=== PATIENT | female | born 1980 | race Caucasian/White ===

== ENCOUNTER 2016-03-25 12:23 | Inpatient (IN) | payer MEDICARE, MEDICAID ==
[~2016-03-25] VITALS: Ht 160 cm; Wt 68.2 kg
[~2016-03-25 12:23] MED LIST: BUSP10TA2 PO; CHOL200025 PO; ESCI10TA52 PO; HYDR50CA3 PO; ZLP5T PO
[2016-03-25 12:26] VITALS: BP 116/72; PULSE 72; RESP 16; O2SAT 100
--- NOTE | 2016-03-25 13:42 | ED.REPORT ---
HPI-Psychiatric Illness Date of Service Mar 25, 2016 ED Provider: Marcos Cabello MD The patient is a 35 year old female with a history of depression, previous suicide attempts, and PTSD who presents to the ED complaining of suicidal ideations. She states that she would overdose on heroin. She has not used for a few months. She was last psychiatrically hospitalized from 02/17/16-02/26- for similar symptoms. She was staying at [facility] for about 1.5 weeks and was released today. She is currently living at the [facility]. She feels safe where she is living. She has been sleeping okay recently. She has noticed decreased appetite. She has experienced some generalized muscle cramps but denies other physical symptoms. She is not sexually active. Nursing Notes Stated Complaint: SUICIDAL THOUGHTS Chief Complaint: Psychiatric Complaint Nursing Notes Reviewed: Yes Allergies: Coded Allergies: ibuprofen (Verified Allergy, Severe, Itchy hands and face. naproxen ok, 02/07/16) lamotrigine (Verified Allergy, Severe, Rash,Itching,, 02/07/16) latex (Verified Allergy, Severe, Rash,Itching,, 02/07/16) quetiapine (Verified Allergy, Severe, Rash,Itching,SOB, 02/07/16) trazodone (Verified Allergy, Severe, 02/07/16) Adhesives (Verified Allergy, Mild, Rash,Itching,, 02/07/16) bupropion (Verified Allergy, Unknown, SEIZURES, 02/07/16) chlorpromazine (Verified Allergy, Unknown, Seizure, 02/07/16) olanzapine (Verified Allergy, Unknown, 02/07/16) haloperidol (Verified Adverse Reaction, Mild, somnolence, 02/07/16) Uncoded Allergies: TREE NUTS (Allergy, Intermediate, 02/26/13) METALS (Allergy, Unknown, 09/18/13) Scheduled Buspirone (Buspirone) 10 Mg Tablet 10 MG PO BID Cholecalciferol (Vitamin D3) (Vitamin D3) 2,000 Unit Tablet 2,000 UNIT PO MORNING Escitalopram Oxalate (Escitalopram Oxalate) 10 Mg Tablet 10 MG PO DAILY Scheduled PRN Hydroxyzine Pamoate (HydrOXYzine Pamoate) 50 Mg Capsule 50 MG PO BID PRN PRN For Anxiety/Agitation/Insomnia Zolpidem (Ambien) 5 Mg Tablet 5 MG PO HS PRN PRN Insomnia General Time Seen by MD: 13:37 Chief Complaint Depressed, Suicidal ideation Hx Obtained From: Patient Arrived By: Walk-in Onset Occurred: 3 days ago Symptom Duration: Since onset Progression Since Onset: Constant, Gradually worsening Quality: Cramping (generalized) Severity: Current: Mild Severity: Maximum: Mild Recent Healthcare: No recent hospitalization, Recent doctor visit Similar Sx Previous: Yes Risk-Psychiatric Illness Suicide Risk Stratification Suicide Risk Factors - Adult: : Prior psych admissionNo: Substance abuse (not currently) RF Statements: Risk factors reviewed Past Medical History Past Medical History Multiple hospitalizations for mental health. Anorexia Bulemia Depression Anxiety Bipolar Disorder PTSD Self mutilation (cutting) Hiatal hernia Reports: Asthma, Hypertension Reports: Migraines Past Surgical History Dental Reports: Family History Unobtainable Smoking History Current Every Day Smoker Social History Alcohol Use: Denies alcohol use Drug Use: In recovery, Meth, THC, Other Other Social History: Poor social support, Homeless Ambulatory Status Independent Review of Systems Review of Systems Note: +muscle cramps Constitutional: Denies: Chills, Fever Respiratory: Denies: Non-productive cough Cardiovascular: Denies: Chest pain GI: Denies: Diarrhea, Nausea, Vomiting Psychiatric: Reports: Depression, Suicidal ideation Complete sys rev & neg: except as marked. Physical Exam Initial Vital Signs Vital Signs (First) Date Time Temp Pulse Resp B/P Pulse Ox O2 Delivery O2 Flow Rate FiO2 03/25/16 12:26 36.8 72 16 116/72 100 Room Air Initial VS: Reviewed Head / Eyes: Atraumatic, Normocephalic, PERRL ENT: Mucous membranes moist, Conjunctiva normal, No scleral icterus Neck: Supple, Non-tender, Full range of motion Respiratory: Breath sounds normal, Clear to auscultation, No respiratory distress Cardiovascular: Regular rate & rhythm, Heart sounds normal, Intact distal pulses Lymphatic: No lymphadenopathy Extremities: Vascular intact, Neuro intact, No swelling, No tenderness Skin: Warm, Dry, No cyanosis General/Constitutional: Awake, Alert, Well appearing Neurologic: Oriented X3, Speech NL, No motor deficits, No sensory deficits, Memory NL Abnormal Thinking / Perception: Positive: Suicidal, with plan (states would overdose with heroin) Pleasant, range of affect Abdomen: Soft, No guarding, No rebound, BS normoactive, No distention, No hernia, No palpable mass, No pulsatile mass Tenderness/Guarding/Rebound: Positive: Tender LLQ... Interpretation & Diagnostics Interpretation & Diagnostics: Urine : negative Urine drug screen: negative Lab Results Interpretation Test 03/25/16 12:36 Hold Urine Received (Received) Re-Eval/Medical Decision Source of Hx: Old records Consultation #1: Consulted With: coke worker Call Returned at: 13:53 Note: Spoke with the ED social work lecturer who will evaluate the patient. Consultation #2: Consulted With: coke worker Call Returned at: 16:16 Note: There are no available voluntary beds at this time. [facility] the patient is she contracts to safety. Counseled Regarding: Diagnosis, Lab results Discharge & Departure Shift Change Sign-Out Patient Care Transferred: Yes Discussed Complaint(s): Yes Laboratory Evaluation: Lab evaluation discussed Response to Therapy: Improved, Discussed Impression: Primary Impression: Suicidal ideation Disposition: Home Discharge Condition All VS Reviewed: Yes Condition: Stable Additional Instructions: Thank you for entrusting us with your care today. [facility] Please return to the emergency department for any new or concerning symptoms. Referrals: Chacha Tran (PCP) Care Transferred to: Dr. Lanza Care Transferred at: 17:02 Ubaldo Attestation Portions of this note were transcribed by Kori Andrea. I, Dr. Cabello personally performed the history, physical exam and medical decision-making; I reviewed and confirmed the accuracy of the information in the transcribed note. Signed by:Ubaldo Faustin, 03/25/2016and 1645. copies to: Chacha Tran Kirk H MD Mar 25, 2016 13:42 Kori Andrea Mar 25, 2016 13:54
[2016-03-25] MEDS ORDERED: LORazepam 1 mg Tablet PO ONE (13:55)
[2016-03-25 16:51] LABS: APPEARANCE,URINE CLEAR (CLEAR,HAZY); COLOR,URINE STRAW (YELLOW); OCCULT BLOOD,URINE NEGATIVE (NEGATIVE); PH,URINE 5.5 (5.0-8.0); UROBILINOGEN,URINE NORMAL (NORMAL)
[2016-03-25 19:18] VITALS: BP 109/71; PULSE 85; RESP 16; O2SAT 99
[2016-03-26 07:00] VITALS: BP 95/57; PULSE 69; RESP 16; O2SAT 96
[2016-03-26 12:04] LABS: BASOPHILS % (AUTO) 0.3 % (0-3); EOSINOPHILS % (AUTO) 2.8 % (0-5); Mean Corpuscular Volume 91.6 fL (81-100); NEUTROPHILS % (AUTO) 57.5 % (40-74); Platelet Count 191 bil/L (150-400)
[2016-03-26 13:45] VITALS: BP 107/62; PULSE 64; RESP 16; O2SAT 97
[2016-03-26] MEDS ORDERED: Benzocaine-Menthol Lozenge 2/Pkg PO PRN (14:55)
[2016-03-26] MEDS ORDERED: Alum-Mag Hydrox-Simeth 30 mL Suspension PO PRN (14:55)
[2016-03-26] MEDS: BusPIRone 15 mg Dividose Tablet PO SCH (20:30)
[2016-03-26 20:49] VITALS: BP 117/69; PULSE 69; RESP 18; O2SAT 100
[2016-03-27 01:17] VITALS: BP 100/63; PULSE 66; RESP 16; O2SAT 97
[2016-03-27] MEDS: BusPIRone 15 mg Dividose Tablet PO SCH ×3 (09:59→20:19)
[2016-03-27] MEDS: hydrOXYzine Pamoate 25 mg Capsule PO PRN (10:32)
--- NOTE | 2016-03-27 14:42 | NUR ---
Nursing Note Admission S/O: Pt arrived on unit at 1425. Pt states she is having constant suicidal thoughts. She rates her depression at a "8 or 9" on a scale of 1-10/10 the worst. Pt rates her anxiety at a "7." Pt reports she does have a suicide plan, but d/n want to talk about it. She agrees to be safe on the unit. Pt reports milk makes her stomach upset, but is able to eat/drink other milk products. Pt denies alcohol use in the past 7 months. She is attempting to stop smoking, but smokes 1 pack a day. Pt reports her medications have not been changed since her last admission. A: Pt depressed & needs evaluation P: Provide supportive environment. Monitor medications & effects.
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
--- NOTE | 2016-03-27 19:30 | NUR ---
Obs Dayshift Pt arrived this afternoon, pt appeared depressed. Requesting to take a shower as soon as possible, after she came out and watched TV w/ peers for the evening. Kept herself out of her room. Participated well w/ admit paperwork. Good ADL's, Good meals
--- NOTE | 2016-03-28 05:25 | NUR ---
Pt out much of evening watching TV and walking with peer. Asleep at 130. Pt observed every 15 minutes as ordered.
--- NOTE | 2016-03-28 05:27 | NUR ---
nursing, nights, 11-7 s- can i have something to help me sleep ? thank you . o- asked for and received 5 mg of ambien at 2335 and 0055. has appeared to sleep after 0130 during q 15 minute assessments. a- difficulty falling asleep, medication helpful, no apparent distress. p- monitor behavior/emotional state, quality, times and amount of sleep, use and effect of medication. lizbeth
[2016-03-28] MEDS: BusPIRone 15 mg Dividose Tablet PO SCH ×3 (09:31→21:07)
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
--- NOTE | 2016-03-28 14:05 | NUR ---
Nursing Note [id number] Behavior, Medication S/O: Pt ate 100% of breakfast but declined lunch. Out of room for groups & meals. Tends to isolate in room. She states, "It's difficult to be out of my room because ----- (other pt) won't leave me alone." She was also startled with remodeling/banging noises from upstairs. Pt rated depression at a "9" on a scale of 1-10/10 the worst. Lexapro dose has been increased. Vistaril 50 mg given at 1032 with some benefit. Encouraged pt to get out of room more. She is currently attending educational group. Pt reports "continual" suicidal ideation. A: Pt con't to have suicidal thoughts & needs support. P: Provide supportive environment. Monitor medications & effects.
--- NOTE | 2016-03-28 16:45 | NUR ---
Observations 0700 to 1900 Pt affect and mood was friendly, social and content. Pt was a little isolative today, stating that she didn't want to be around some of the other patients. Pt speech and eye contact was good. Pt attended group and unit activities. Pt was social with staff and select peers when approached. Pt attended meals in [facility] and ate about 75%. Pt maintained behavior throughout the shift. Pt was polite, pleasant and cooperative. Pt was observed every 15 minutes throughout the shift as ordered. Pt is currently watching TV.
[2016-03-28 18:29] VITALS: BP 116/65; PULSE 75; RESP 16
--- NOTE | 2016-03-28 18:54 | NUR ---
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 She denies S/I and H/I. She also denies auditory and visual hallucinations. She did not rate depression and anxiety. A: Patient is cooperative, sad, depressed, isolative at times. P: Follow care plan coordinate out-patient providers.
--- NOTE | 2016-03-29 04:41 | NUR ---
Pt isolated to room most of evening. Asleep at 145. Had just drifted off when another Pt began yelling and woke her up. Pt observed every 15 minutes as ordered.
[2016-03-29] MEDS: BusPIRone 15 mg Dividose Tablet PO SCH ×3 (09:19→19:54)
[2016-03-29 10:00] VITALS: BP 100/54; PULSE 72; RESP 16
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
--- NOTE | 2016-03-29 17:42 | NUR ---
Manager Spring/Counselor: S: "I'm really sad about my life." O: Patient only slept 4.5 hours last night as per staff. She reports passive thoughts of hurting herself, but contracts for safety. She denies H/I. She also denies auditory and visual hallucinations. She did not rate depression and anxiety. She just stated that she is sad. A: Patient is cooperative, sad, depressed, blunted affect, isolative at times, hopeless, helpless. P: Follow care plan, coordinate out-patient providers.
--- NOTE | 2016-03-29 17:55 | NUR ---
NURS NoteO Pt up for breakfast, in bed most of the morning. Sleep disturbed on NOC shift r/t noisy, disruptive fellow pt, 4.5 H sleep. Out on unit in afternoon, socializing with fellow pts. Rates anxiety at 10/10; depression 11/10; SI 07/10 w/o plan. Took PRN diazepam 5 mg for anxiety in afternoon, said "it helped." Stated, "I feel a little better than when I got here." Lexapro increased per Dr. Hernandez's orders from 10 mg/day to 20 mg/day. Pt is pleasant and cooperative, mood has improve somewhat since admission. Continue to monitor mood and assess SI.
--- NOTE | 2016-03-29 17:56 | NUR ---
[facility] Day Shift Pt maintained behavioral control throughout the shift. Pt affect appears mostly flat, brighter when engaged with staff and peers. Pt spends most of the AM and afternoon resting in her room, but is more active on the unit in the evening. Pt is appropriate with staff and peers when active on the unit, but is not overly social. Pt attended community meeting in the AM, but did not participate in any group activities throughout the shift. Pt attended all meals and ate approx 90% of all meals.
--- NOTE | 2016-03-30 05:47 | NUR ---
Nursing note: second shift supervisor Patient received Ambien 5mg at midnight reporting she could not get to sleep. Patient also received Tylenol 650mg for c/o of right leg soreness "I think I strained a muscle or something. Patient observed reading in room until 0200, then appears to be asleep on subsequent safety checks.
--- NOTE | 2016-03-30 06:02 | NUR ---
Pt out on unit this evening but came to staff noting feeling unsafe due to another Pt being verbally aggressive and argumentative. Staff assured her they were listening and would keep an ear out and TV and lights out after movie, this reassured her and she finished movie. Asleep at 230. Was trying to sleep when another Pt began yelling and woke her up. Pt observed every 15 minutes as ordered.
[2016-03-30] MEDS: BusPIRone 15 mg Dividose Tablet PO SCH ×3 (07:57→20:13)
[2016-03-30 12:22] VITALS: BP 111/58; PULSE 72; RESP 16
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
--- NOTE | 2016-03-30 17:31 | NUR ---
Observations 0700 to 1900 Pt maintained behavioral control throughout the shift. Pt is flat, isolative, depressed. Pt came out of room for meals but otherwise stayed in bed for all of morning and most of afternoon. Pt did not attended any community activities during the day. Pt became more social as the day progressed, coming to sit in D.R. in late afternoon. Pt is currently sitting in D.R. taling with peers. Pt ate 75-100% of meals and was observed every 15 minutes as ordered.
[2016-03-31] MEDS: BusPIRone 15 mg Dividose Tablet PO SCH ×3 (09:23→20:53)
[2016-03-31 10:53] VITALS: BP 110/61; PULSE 69; RESP 18
--- NOTE | 2016-03-31 11:42 | NUR ---
Obiee Consultant./ c.m. S./O.: tried to meet with pt. in her room in the middle of morning. She was sleeping and didn't respond to loan underwriter's greeting. She didn't sleep well last night but she spent most of the day yesterday sleeping or resting in her bed. A.: pt. is isolative, quiet, sleeping a lot during a day, very passive. P.: monitor behavior, encourage pt. to stay more in a public area, engage in the unit activities, coordinate with outpatient providers; follow care plan.
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
--- NOTE | 2016-03-31 12:27 | NUR ---
Nursing Day Shift- S- "I'm doing ok." O- Pt. appeared asleep at the start of the day shift. She was woken several times for breakfast, but returned to sleep. She got out of bed at 0930 and eat 100%, requested and received Valium 5 mg for anxiety rated 5/10. She reported a poor nights sleep, contracted for safety. and returned to bed. Pt. was again woken for lunch, but declined to get up thus far today. A- Isolating, polite and appropriate with a flat affect when awake. Flipped sleep clock with poor HS sleep and excessive daytime sleep. P- Encourage increased time out of her room during the daytime. Cont. BHTP.
--- NOTE | 2016-03-31 17:32 | NUR ---
[facility] Day Shift Pt affect and behavior unchanged from previous shifts. Pt maintained behavioral control throughout the shift. Pt affect appears mostly flat, brighter when engaged with staff and peers. Pt spends most of the AM and afternoon resting in her room, but is more active on the unit in the evening. Pt is appropriate with staff and peers when active on the unit, but is not overly social. Pt did not participate in any group activities throughout the shift. Pt attended all meals and ate approx 90% of all meals.
--- NOTE | 2016-04-01 03:49 | NUR ---
Observations from [id number] Pt was bright and engaging with peers all evening. A groups of pts were playing wii and they seemed to be enjoying that. Pt was pleasant and polite when engaging with staff. Pt has some trouble falling asleep and didn't appear asleep until 0145. Pt has appeared to sleep soundly since falling asleep and has been monitored every 15 minutes as directed.
--- NOTE | 2016-04-01 05:35 | NUR ---
Nursing NOC Pt engaging in conversations with peers during evening, able to make needs known in an appropriate and polite manner, requesting Valium, Ambien and nicotine lozenges and asleep since 144.
[2016-04-01] MEDS: BusPIRone 15 mg Dividose Tablet PO SCH ×3 (08:51→20:21)
[2016-04-01 09:59] VITALS: BP 98/67; PULSE 76; RESP 16
--- NOTE | 2016-04-01 14:08 | NUR ---
Nursing Day Shift- S- "Can I take a nap for like an hour or 2 after breakfast please A....?" ((Pt. response to being encouraged to remain awake during the day to improve nighttime sleep and unit participation.) O- Pt. had delayed onset of sleep again last PM. She arose at 0840 to eat breakfast, then returned to her room. Pt. was encouraged to participate, and stated the above. She then remained in her room until 1400, when she got up and requested Ice cream. Pt. was irritable when told it was not available. Pt. denied daytime sleeping pattern when not hospitalized. Valium was requested and given at 0840 for anxiety rated 8/10. A- Helpless, hopeless, minimal participation, irritation with limit setting. P- to meet with Pt. and discuss options. Cont. BHTP.
--- NOTE | 2016-04-01 16:04 | NUR ---
Observations [id number] Pt was asleep upon start of shift. Pt appears to be tired and wanting to spend the majority of time in her room sleeping. She attended all meals. Pt came to Community Meeting with staff encouragement. She spent the latter part of the afternoon coloring and visiting with peers in the common area. Pt appeared to be encouraging staff splitting, asking one staff member for something and then asking another in hopes of getting a different answer. Pt was observed every 15 minutes of shift as directed.
--- NOTE | 2016-04-01 18:26 | NUR ---
Rac Specialist/Counselor: S: "I have thoughts of hurting myself because I feel that I can't deal with this anymore." O: Patient only slept 5+ hours last night as per staff. She reports occasionally having feelings/thoughts of hurting herself but contracts for safety. She denies H/I. She denies auditory and visual hallucinations. Depression is "a tiny bit better, 8/10 and anxiety is 7-8/10. When asked her mood, patient stated, "I'm doing okay." A: Patient is cooperative, sad, depressed, isolative, fair insight, fair judgment. P: Follow care plan, coordinate out-patient providers.
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
--- NOTE | 2016-04-01 21:32 | NUR ---
NURSING NOTE [id number] Mood= "fine" Affect= flat, guarded Behavior= visible and social w/peers on unit-- watches TV, colors. She took a shower. Med compliant. Thought processes= logical, linear, endorses depression; "it's always there", denies SI this shift. PRNs Valium @ 16:34 and 21:31 Tylenol @ 17:55 for back pain Melatonin @ 21:31 Nicorette lozenges x3
[2016-04-01] MEDS: Magnesium Hydroxide 10 mL Oral Concentration PO PRN (23:10)
--- NOTE | 2016-04-02 01:15 | NUR ---
Observations 1900 to 0700 Pt affect remains the same. Pt spent her night watching TV. Pt was polite and cooperative with staff. Pt first appeared asleep at 01:00 and was observed every 15 minutes through the night as directed.
--- NOTE | 2016-04-02 05:43 | NUR ---
Nursing, Nights, 11-7 s/o- has appeared to sleep 2245 during q 15 minute assessments. a- no apparent distress. p- monitor behavior/emotional state, quality, times and amount of sleep, use and effect of medication. Addendum: 04/02/16 at 0552 by SCOT RUST RN Error to previous objective. Pt appeared to go to sleep at 0100 for a total of 5.5 plus hours of sleep.
[2016-04-02] MEDS: BusPIRone 15 mg Dividose Tablet PO SCH ×2 (08:32→19:46)
[2016-04-02 09:00] VITALS: BP 110/65; PULSE 70; RESP 16
--- NOTE | 2016-04-02 14:20 | NUR ---
Nursing Day Shift- S- "A... I've been in my room but I've been awake and reading a book other then one 30 minute nap." O- Pt. was awake for breakfast. She eat 100%, then returned to her room. Pt. stated the above at 11ish. She was polite with staff and peers. Pt. continues to contract for safety on the unit. A- Continuing isolation and depression. Passive and helpless behavior. P- Cont. BHTP.
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
--- NOTE | 2016-04-02 17:38 | NUR ---
Nursing Note Kendy Shift- Pt isolating to room for part of the shift but got up for dinner and tv later in the evening. Pt cooperative, pleasant and open to talking about depression and feelings. Pt rated anxiety 7/10, depression 7/10 and denied SI at that time . Pt stated "I have been sober for 7 months now" encouraged pt to be proud of this accomplishment and was given 5mg of diazepam. Q15 min safety checks done per protocol, [facility] sleep, safety, and behavior
[2016-04-02] MEDS: Magnesium Hydroxide 10 mL Oral Concentration PO PRN (19:47)
--- NOTE | 2016-04-03 01:26 | NUR ---
Observations 1900 to 0700 Pt affect remains the same. Pt spent her night watching TV and playing the WII. Pt was polite and cooperative with staff. Pt first appeared asleep at 01:30 and was observed every 15 minutes through the night as directed.
--- NOTE | 2016-04-03 05:44 | NUR ---
Nursing 11p-7a Delayed onset of sleep. She requested and received Ambien 5mg po prn @ 2353 w/ good effect. She fell asleep by 0130 for a total of 4+ hours.
[2016-04-03 06:11] LABS: Hepatitis A Antibody IgM Negative (Negative); Hepatitis B Core Antibody IgM Negative (Negative)
[2016-04-03] MEDS: BusPIRone 15 mg Dividose Tablet PO SCH ×2 (09:44→20:29)
--- NOTE | 2016-04-03 11:06 | NUR ---
Nursing Day Shift- S- "I'm going to try and relax and stay peaceful no matter who tries to push my buttons today." O- Pt. was asleep at the start of the day shift. She awoke for breakfast and Community Mtg. She set the above goal for the day without specifying who she was referring to. Valium was requested and given at 0840. Pt. returned to her room after community Mtg. She denied SI. A- Depression and SI seem to be decreasing since hospitalization. Pt. appears to be enjoying privacy and rest. P- Cont. BHTP.
[2016-04-03 15:20] VITALS: BP 109/71; PULSE 70; RESP 16
--- NOTE | 2016-04-03 17:07 | NUR ---
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 She reports occasionally having feelings/thoughts of hurting herself but contracts for safety. She denies H/I. She denies auditory and visual hallucinations. Depression is 7/10 and anxiety is 9/10 because I'm having a hard time calming down. When asked her mood, patient stated, "I'm doing okay." A: Patient is cooperative, sad, depressed, fair insight, fair judgment. P: Follow care plan, coordinate out-patient providers.
--- NOTE | 2016-04-03 18:11 | NUR ---
[facility] Day Shift Pt affect and behavior unchanged from previous shifts. Pt maintained behavioral control throughout the shift. Pt affect appears mostly flat, brighter when engaged with staff and peers. Pt spends most of the AM and afternoon resting in her room (albeit to a lesser extent than noted on previous shifts), but is more active on the unit in the evening. Pt is appropriate with staff and peers when active on the unit, but is not overly social. Pt did not participate in any group activities throughout the shift. Pt attended all meals and ate approx 90% of all meals.
--- NOTE | 2016-04-03 18:58 | NUR ---
NURS evening shift S "I'm doing okay" O Pt endorsed anxiety/depression 09/09. Denies SI. Did not endorse AH, VH. Given PRN diazepam 2.5mg at 1845. A Pt is pleasant, calm, and cooperative. P Continue with current care plan.
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
--- NOTE | 2016-04-04 05:18 | NUR ---
Observations 1900 to 0700 Pt affect remains the same. Pt spent her night watching TV and playing the WII. Pt watched TV until she went to her room for the night. Pt was polite and cooperative with staff. Pt first appeared asleep at 12:30 and was observed every 15 minutes through the night as directed.
--- NOTE | 2016-04-04 05:44 | NUR ---
Nursing, Nights, 11-7 s/o- has appeared to sleep 0030 during q 15 minute assessments. a- no apparent distress. Pt requested all available PRNs this shift to assist with sleep r/t Wendy telling her scary stories just prior to sleep. p- monitor behavior/emotional state, quality, times and amount of sleep, use and effect of medication.
[2016-04-04] MEDS: BusPIRone 15 mg Dividose Tablet PO SCH ×2 (09:41→19:59)
--- NOTE | 2016-04-04 15:50 | NUR ---
Nursing Day Shift- S- "Hi An... How is your day going? I'm good." O- Pt. had slept 5 plus hours per shift report. She was more visible and participatory on the unit today. Pt. had a brighter affect. She eat well at meals. Pt. continues to deny SI and contract for safety on the unit. A- Depression, increased participation. Helpless and passive. P- Cont. BHTP.
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
--- NOTE | 2016-04-04 17:53 | NUR ---
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 She reports occasional passive feelings/thoughts of S/I, but contracts for safety. She denies H/I. She denies auditory and visual hallucinations. Depression is 7/10 and anxiety decreased to 6/10. A: Patient is cooperative, pleasant, restricted affect, dysthymic, good insight, limited judgment. P: Follow care plan, coordinate out-patient providers.
--- NOTE | 2016-04-04 18:52 | NUR ---
[facility] Day Shift Pt affect and behavior mostly unchanged from previous shifts. Pt maintained behavioral control throughout the shift. Pt affect appears mostly flat, brighter when engaged with staff and peers. Pt spends most of the AM and afternoon resting in her room (albeit to a lesser extent than noted on previous shifts), but is more active on the unit in the evening. Pt is appropriate with staff and peers when active on the unit and appears more social than noted on previous shifts. Pt attended community meeting in the AM and group activities throughout the shift. Pt attended all meals and ate approx 90% of all meals.
--- NOTE | 2016-04-04 19:06 | NUR ---
NURSING NOTE [id number] Orientation= x4 Mood= "okay" Affect= neutral, smiling more Behavior= watching TV for most of the shift w/peers. Social w/peers. Med compliant. Thought processes= passive SI w/no plan or intent. Endorses depression. No AH/VH. Addendum: 04/04/16 at 2221 by VESTA LANG RN PRNs 20:00 Diazepam 2.5 mg 21:04 Melatonin 21:18 Vistaril 21:57 Ambgokul + nicoaishate rupal [facility]
[2016-04-04 19:19] VITALS: BP 110/67; PULSE 90; RESP 16
[2016-04-04] MEDS: hydrOXYzine Pamoate 25 mg Capsule PO PRN (21:18)
--- NOTE | 2016-04-05 05:26 | NUR ---
nursing, nights, 11-7 s/o- has appeared to sleep after 2345 during q 15 minute assessments. a- no apparent distress. p- monitor behavior/emotional state, quality, times and amount of sleep, use and effect of medication. lizbeth
--- NOTE | 2016-04-05 05:39 | NUR ---
Pt out on unit this evening. Asleep at 2345. Pt observed every 15 minutes as ordered.
[2016-04-05] MEDS: BusPIRone 15 mg Dividose Tablet PO SCH ×2 (09:31→20:53)
[2016-04-05] MEDS: Magnesium Hydroxide 10 mL Oral Concentration PO PRN (13:24)
--- NOTE | 2016-04-05 14:17 | NUR ---
NURS note day shift Orientation:x4 Mood: "It depends on how things go, but I'm hopeful." Affect: Restricted. Behavior: Pleasant, calm, and cooperative. Pt out for breakfast around 0930. Currently on the phone with social security. Thought processes: Clear, logical, and linear. PRN/Nursing Note: Given PRN milk of magnesia 10 mg for constipation and diazepam 2.5 mg for anxiety.
[2016-04-05 16:40] VITALS: BP 124/66; PULSE 76; RESP 16
--- NOTE | 2016-04-05 18:00 | NUR ---
[facility] Day Shift Pt affect and behavior mostly unchanged from previous shifts. Pt maintained behavioral control throughout the shift. Pt affect appears mostly flat, brighter when engaged with staff and peers. Pt spends most of the AM and afternoon resting in her room (albeit to a lesser extent than noted on previous shifts), but is more active on the unit in the evening. Pt is appropriate with staff and peers when active on the unit and appears more social than noted on previous shifts. Pt appears tearful in the afternoon while discussing her home situation with a peer (pt states she is not able to contact her children). Pt attended community meeting in the AM and group activities throughout the shift. Pt attended all meals and ate approx 90% of all meals.
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
--- NOTE | 2016-04-05 18:06 | NUR ---
Hvac Maintenance Technician/Counselor: S: "I had a lot of anxiety last night." O: Patient slept 6+ hours last night as per staff. She reports that the occasional passive feelings/thoughts of S/I are still there, but slowly getting better, but contracts for safety. She denies H/I. She denies auditory and visual hallucinations. Depression is 7-8/10 and anxiety increased to 8/10. This medical technical writer spoke with [facility] ([facility]) manager terminal and suggested patient replace another patient that declined coming to [facility]. This medical technical writer faxed a referral to [facility] inhopes of patient getting the available bed at [facility] for 04/08/16. Awaiting response from [facility] showcase trimmer 04/08/16. A: Patient is cooperative, pleasant, restricted affect, dysthymic, good insight, limited judgment. P: Follow care plan, coordinate out-patient providers and [facility].
--- NOTE | 2016-04-05 18:08 | NUR ---
Nurses PRN Patient requested and received Valium 2.5mg for increasing anxiety,will assess response.
--- NOTE | 2016-04-06 04:58 | NUR ---
Pt out on unit this evening. Asleep at 0030. Pt observed every 15 minutes as ordered.
--- NOTE | 2016-04-06 05:23 | NUR ---
nursing, nights, 11-7 s- can i talk to you ? i had a nightmare. thank you. o- has appeared to sleep after 0030. up at 0455 seeking staff. spoke with staff at length and is currently socializing with a peer. assessed q 15 minutes. a- inadequate/interrupted sleep, responds well to staff support and reassurance, no apparent distress. p- monitor behavior/emotional state, quality, times and amount of sleep, use and effect of medication. lizbeth
[2016-04-06] MEDS: BusPIRone 15 mg Dividose Tablet PO SCH ×2 (09:12→20:44)
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
[2016-04-06] MEDS: Magnesium Hydroxide 10 mL Oral Concentration PO PRN (14:07)
--- NOTE | 2016-04-06 14:34 | NUR ---
Day shift nursing note-anxiety/depression/SI/Appetite/Mood S/O-"I need Valium please." Pt. presented with a flat affect. She has been going to all groups and is more responsive with staff and peers than when she is alone. She has been going to all groups and rates her depression at 7/10 and anxiety at 9/10. She denies SI. She requested and was given 2.5 mg. of Valium PO per request for anxiety at 1144. She walked the jarrett for 1 mile with a peer and was brighter when engaged. 1 hour after getting Valium she rated her anxiety at 7/10. She requested and was given 1 Nicorette at 1433. At 1407 she was given MOM for sxs of constipation. She denies any hallucinations. She stated she did not sleep well last night because she had multiple nightmares. A-Helpless. Passive. Flat affect. P-Monitor for safety per protocol. Assess efficacy of meds to manage depression and anxiety. Encourage engagement in group activities.
--- NOTE | 2016-04-06 16:13 | NUR ---
Educational Guidance Counselor/Counselor: S: "I kept waking up last night from nightmares." O: Patient slept 6 hours last night as per staff. She reports that the occasional passive feelings/thoughts of S/I "but they are getting better," and contracts for safety. She denies H/I. She denies auditory and visual hallucinations. Depression is 7/10 and anxiety increased to 7/10. Patient talked to this newspaper writer and psychiatrist about her nightmares last night. A: Patient is cooperative, pleasant, blunted affect, dysthymic, good insight, limited judgment. P: Follow care plan, coordinate out-patient providers and [facility].
--- NOTE | 2016-04-06 16:59 | NUR ---
Observations 0700 to 1900 Pt affect and mood was friendly, bright, social and content. Pt has been quite a bit more social over the last couple of days. Pt attended group and unit activities. Pt walked the hallway for exercise with peer. Pt speech and eye contact was good. Pt was social with staff and select peers when approached. Pt attended meals in D.R. and ate 100% of meals. Pt has a good appetite. Pt maintained behavior throughout the shift. Pt was polite, pleasant and cooperative. Pt played Wii games with peers. Pt was observed every 15 minutes throughout the shift as ordered.
[2016-04-06 19:47] VITALS: BP 95/57; PULSE 81; RESP 16
--- NOTE | 2016-04-07 05:11 | NUR ---
Pt out on unit this evening. Asleep at 0045-500. Pt noted being awoken by nightmares. Pt observed every 15 minutes as ordered.
--- NOTE | 2016-04-07 05:56 | NUR ---
Nursing note: 07: sleep Patient observed awake in dining room at beginning of shift, stated she was disturbed by the noise of hospital fire alarm. Patient social with another female peer. Patient returned to room, reading for a period of time, then appears to be sleeping on subsequent safety checks.
[2016-04-07] MEDS: BusPIRone 15 mg Dividose Tablet PO SCH (08:05)
[2016-04-07 09:00] VITALS: BP 100/53; PULSE 70; RESP 16
--- NOTE | 2016-04-07 11:03 | NUR ---
Nursing Note [id number] Behavior, Mood S/O: Pt ate 100% of breakfast. B/P low at 100/53. Pt states, "I didn't sleep well last night. I kept having nightmares." Pt rated anxiety at a "7" on a scale of 1-10/10 the worst "because of the nightmares." Pt requested Valium, but then changed her mind when she discovered she had one earlier this morning & would only get 1 more dose today if she accepted it. She decided to try & nap to decrease her anxiety. Pt is napping at this time. Conversation tracking clear & organized with normal rate & rhythm. Affect if sad. A: Pt con't to have ongoing depression. P: Provide supportive environment. Monitor medications & effects.
[2016-04-07] MEDS: Magnesium Hydroxide 10 mL Oral Concentration PO PRN (13:23)
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
--- NOTE | 2016-04-07 18:10 | NUR ---
Observations [id number] Pt was asleep upon start of shift. She was more active around the unit, watching TV with peers and spending time in the common areas. Pt stated that she is excited to find out if she has been accepted to the [facility] program. Pt spent time in her room sleeping as well. Pt was friendly with staff and peers. She did not attend groups. Pt ate 75% of meals, and was observed every 15 minutes of shift as directed.
[2016-04-07] MEDS ORDERED: BusPIRone 15 mg Dividose Tablet PO SCH (21:00)
--- NOTE | 2016-04-08 05:00 | NUR ---
Observations from [id number] Pt spent the evening socializing with peers on the unit and watching the snowfall out the window. Pt is friendly and appropriate with peers and staff. Pt appeared asleep at 0315 and has been monitored every 15 minutes as directed
--- NOTE | 2016-04-08 05:59 | NUR ---
Nursing note: 11p-07a/ sleep Patient awake early part of shift,unable to sleep despite previous prn sleeping medication. Patient is pleasant and social with peers and staff. Patient is enjoying looking out the window and watching the snow. Patient did retire to bed and appears asleep after 0315 safety checks.
[2016-04-08] MEDS: BusPIRone 15 mg Dividose Tablet PO SCH (09:12)
--- NOTE | 2016-04-08 12:26 | PCM.DIMED ---
Discharge Instructions Date of Service Apr 08, 2016 Dates of Hospitalization Mar 26, 2016 at 14:19 Discharge Diagnosis Discharge Diagnosis AXIS I 1. Posttraumatic stress disorder. 2. Major depressive disorder recurrent 3. Anorexia and bulimia, by history 4. Methamphetamine use disorder, in partial remission 5. Cannabis use disorder, in partial remission AXIS II Borderline personality disorder. AXIS III None acute. AXIS IV Severe: homeless, substance use, financial difficulties, from children. AXIS V Current global assessment of functioning equal to 50. Test Results CBC Test 03/26/16 11:56 White Blood Count 6.5th/mm3 (3.8-10.1) Red Blood Count 4.06mil/mm3 (3.90-5.20) Hemoglobin 13.0g/dL (12.0-15.6) Hematocrit 37.2% (35.0-46.0) Mean Corpuscular Volume 91.6fL (81-100) Mean Corpuscular Hemoglobin 32.0pg (27.0-35.0) Mean Corpuscular Hemoglobin Concent 34.9% (32.0-37.0) Red Cell Distribution Width 11.8% (12.3-15.4) Platelet Count 191bil/L (150-400) Neutrophils (%) (Auto) 57.5% (40-74) Lymphocytes (%) (Auto) 31.2% (14-46) Monocytes (%) (Auto) 8.0% (4-12) Eosinophils (%) (Auto) 2.8% (0-5) Basophils (%) (Auto) 0.3% (0-3) CMP Test 03/26/16 11:56 Sodium Level 138mEq/L Potassium Level 4.4mEq/L Chloride Level 101mEq/L Carbon Dioxide Level 27mmol/L Blood Urea Nitrogen 12mg/dL Creatinine 0.65mg/dL Estimat Glomerular Filtration Rate 150mL/min Glucose Level 112mg/dL Calcium Level 8.6mg/dL Total Bilirubin 0.3mg/dL Aspartate Amino Transf (AST/SGOT) 12U/L Alanine Aminotransferase (ALT/SGPT) 14U/L Alkaline Phosphatase 39U/L Total Protein 5.9g/dL Albumin 3.8g/dL Thyroid Stimulating Hormone (TSH) 0.611uIU/mL Hold Platt Top Tube Received Test 04/02/16 17:23 RPR Non-reactive Hepatitis A IgM Ab Negative Hep Bs Antigen Negative Hep B Core IgM Ab Negative Hepatitis C Antibody <0.1 HIV 1&2 Ag/Ab, 4th Gen Non-reactive Diet No restrictions Activity No restrictions Patient Instructions Should you have any thoughts of harming yourself or others, please call the crisis line, your provider, 911, or go to the nearest Emergency Department. Do not change or discontinue your medications without discussing with your provider. You have been given a prescription for 30 days supply of your medication Follow-up plan Charge Manager Juanita Sanchez, Charge Manager per discharge plan [facility] [address] [address] Medication Management BENEDICT Landon per discharge plan [facility] [address] [address] Primary Care BENEDICT Jesus Brian E MD Apr 08, 2016 12:26
[2016-04-08] MEDS ORDERED: BUSP15TA3 PO ×2 (12:29)
[2016-04-08] MEDS ORDERED: MELA5TAB14 PO (12:29)
[2016-04-08] MEDS ORDERED: ESCI10TA52 PO (12:29)
[2016-04-08] MEDS ORDERED: HYDR50CA3 PO (12:29)
[2016-04-08] MEDS ORDERED: ZLP5T PO (12:29)
--- NOTE | 2016-04-08 14:10 | NUR ---
Nursing Note Discharge Pt discharged to [facility] via cab today at 1355 with all belongings. Pt denies suicidal/homicidal ideation or hallucinations. Pt expressed understanding of all paperwork & appointments. She has a copy of them upon leaving the unit. Prescriptions faxed to [facility]. Home medications given to pt. Pt cooperative with discharge process.
--- NOTE | 2016-04-08 14:57 | NUR ---
Nuclear Plant Technical Advisor/Counselor: S: "I am so happy about being able to go to [facility]." O: Patient slept 2+ hours last night as per staff. She denies S/I and H/I. She denies auditory and visual hallucinations. Out-patient appointments: BENEDICT Jesus, Primary Care Physician, 04/09/16 at 1:45pm and Juanita Arango [facility] patient case manager, 04/12/16 at 9:00am. Patient discharged to [facility]. A: Patient is cooperative, pleasant, brighter, dysthymic, good insight, good judgment. P: Follow care plan, coordinate out-patient providers and [facility].
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
== END 2016-04-08 13:55 | disposition home or self-care (01) | DRG 885 ==
LOC: SED 12:23 → OFED 03-26 14:19 → MHC 03-27 14:20
PROVIDERS: ADMIT Psychiatry & Neurology Psychiatry; ATTEND Psychiatry & Neurology Psychiatry
DX: F33.9 Major depressive disorder, recurrent, unspecified (principal); R45.851 Suicidal ideations; F43.10 Post-traumatic stress disorder, unspecified; F17.200 Nicotine dependence, unspecified, uncomplicated; F60.3 Borderline personality disorder; K21.9 Gastro-esophageal reflux disease without esophagitis; J45.909 Unspecified asthma, uncomplicated; F12.90 Cannabis use, unspecified, uncomplicated; F15.90 Other stimulant use, unspecified, uncomplicated; F41.9 Anxiety disorder, unspecified; Z59.0 Homelessness

== ENCOUNTER 2016-05-30 16:36 | Inpatient (IN) | payer MEDICARE, MEDICAID ==
[~2016-05-30] VITALS: Ht 160 cm; Wt 72.7 kg
[~2016-05-30 16:36] MED LIST changes: -BUSP10TA2 PO; +BUSP15TA3 PO; +MELA5TAB14 PO
[2016-05-30 16:38] VITALS: BP 138/85; PULSE 95; RESP 16; O2SAT 98
[2016-05-30] MEDS ORDERED: BUSP15TA3 PO (16:43)
[2016-05-30] MEDS ORDERED: ESCI20TA PO (16:43)
[2016-05-30] MEDS ORDERED: BUSP30TA2 PO (16:43)
--- NOTE | 2016-05-30 18:05 | ED.REPORT ---
HPI-Psychiatric Illness Date of Service May 30, 2016 ED Provider: Gigi Sellers MD A 35 year old female with a history of depression, PTSD, previous suicide attempts and admissions presents to the ED via EMS with suicidal ideation that began earlier this evening. Patient reports thoughts of using meth and overdosing on heroin. She states that she has felt lonely, depressed and stressed because of recent housing changes. Patient was living at the transitional house prior to her current living situation and felt that she was not ready to leave the transitional house. She does not currently have a counselor or mental health provider. She has been clean and sober for the past 9 months. Patient is currently seeking admission to the hospital. Previous suicide attempts include cutting wrists, overdose on Percocet and overdose 5 mg Valium. Patient is currently taking 20 mg of Lexapro and 30 mg of BuSpar and has been taking the medication as prescribed. Her last menstrual cycle was on . Nursing Notes Stated Complaint: SUICIDAL Chief Complaint: Psychiatric Complaint Nursing Notes Reviewed: Yes Allergies: Coded Allergies: ibuprofen (Verified Allergy, Severe, Itchy hands and face. naproxen ok, 02/07/16) lamotrigine (Verified Allergy, Severe, Rash,Itching,, 05/30/16) latex (Verified Allergy, Severe, Rash,Itching,, 05/30/16) quetiapine (Verified Allergy, Severe, Rash,Itching,SOB, 05/30/16) trazodone (Verified Allergy, Severe, 05/30/16) Adhesives (Verified Allergy, Mild, Rash,Itching,, 05/30/16) bupropion (Verified Allergy, Unknown, SEIZURES, 05/30/16) chlorpromazine (Verified Allergy, Unknown, Seizure, 05/30/16) olanzapine (Verified Allergy, Unknown, 05/30/16) haloperidol (Verified Adverse Reaction, Mild, somnolence, 05/30/16) Uncoded Allergies: TREE NUTS (Allergy, Intermediate, 02/26/13) METALS (Allergy, Unknown, 09/18/13) Scheduled Buspirone (Buspirone) 15 Mg Tablet 15 MG PO QAM Buspirone (Buspirone) 30 Mg Tablet 30 MG PO HS Escitalopram Oxalate (Lexapro) 20 Mg Tablet 20 MG PO DAILY General Time Seen by MD: 17:03 Chief Complaint Suicidal ideation Hx Obtained From: Patient Arrived By: Walk-in Onset Occurred: 1 week ago Symptom Duration: Since onset Progression Since Onset: Unchanged Associated with: Reports: Depression Pertinent Negative: Pt denies other symptoms Recent Healthcare: No recent hospitalization, Recent doctor visit Risk-Psychiatric Illness Suicide Risk Stratification Suicide Risk Factors - Adult: : Previous attempt: Prior psych admission: Substance abuse (Previous ) RF Statements: Risk factors reviewed Past Medical History Past Medical History Notes: PCP: Chacha MCMULLEN Past Medical History Multiple hospitalizations for mental health. Anorexia Bulemia Depression Anxiety Bipolar Disorder PTSD Self mutilation (cutting) Hiatal hernia Reports: Asthma, Hypertension Reports: Migraines Past Surgical History Dental Reports: Family History Unobtainable Smoking History Current Every Day Smoker Social History Alcohol Use: In recovery (9 months sober) Drug Use: In recovery (9 months sober), IV drugs, Meth, THC, Other Other Social History: Poor social support, Homeless Ambulatory Status Independent Review of Systems Constitutional: Denies: Chills, Fever Respiratory: Denies: Shortness of breath GI: Denies: Nausea, Vomiting Neurologic: Denies: Change LOC Psychiatric: Reports: Depression, Stress, Suicidal ideation Complete sys rev & neg: except as marked. Physical Exam Initial Vital Signs Vital Signs (First) Date Time Temp Pulse Resp B/P Pulse Ox O2 Delivery O2 Flow Rate FiO2 05/30/16 16:38 36.8 95 16 138/85 98 Room Air Initial VS: Reviewed Head / Eyes: Atraumatic, Normocephalic, PERRL Extremities: Vascular intact, Neuro intact, No swelling, No tenderness Skin: Warm, Dry, No cyanosis General/Constitutional: Awake, Alert Neurologic: Oriented X3, No motor deficits, No sensory deficits Psychiatric: Not homicidal, No hallucinations Abnormal Mood/Affect: Positive: Depressed Abnormal Thinking / Perception: Positive: Judgment abnormal (Poor judgement ), Suicidal, with plan PSYCH: Good insight Respiratory / Chest: Atraumatic, Breath sounds NL, Breath sounds = bilat, No respiratory distress Cardiovascular: Heart rate NL, Regular rhythm, Heart sounds NL, No gallop, No murmurs, No rubs Abdomen: Atraumatic, Soft, Non-tender, BS normoactive Interpretation & Diagnostics Lab Results Interpretation Result Diagram: 05/30/16191005/30/161910 Test 05/30/16 19:11 White Blood Count 7.0th/mm3 (3.8-10.1) Red Blood Count 4.75mil/mm3 (3.90-5.20) Hemoglobin 15.2g/dL (12.0-15.6) Hematocrit 42.7% (35.0-46.0) Mean Corpuscular Volume 89.9fL (81-100) Mean Corpuscular Hemoglobin 32.0pg (27.0-35.0) Mean Corpuscular Hemoglobin Concent 35.6% (32.0-37.0) Red Cell Distribution Width 11.8% (12.3-15.4) Platelet Count 230bil/L (150-400) Neutrophils (%) (Auto) 60.3% (40-74) Lymphocytes (%) (Auto) 31.1% (14-46) Monocytes (%) (Auto) 6.6% (4-12) Eosinophils (%) (Auto) 1.6% (0-5) Basophils (%) (Auto) 0.3% (0-3) Sodium Level 142mEq/L (134-144) Potassium Level 4.8mEq/L (3.5-5.2) Chloride Level 102mEq/L (97-108) Carbon Dioxide Level 28mmol/L (18-29) Blood Urea Nitrogen 11mg/dL (6-20) Creatinine 0.72mg/dL (0.57-1.00) Estimat Glomerular Filtration Rate 134mL/min (>59) Glucose Level 79mg/dL (60-99) Calcium Level 9.7mg/dL (8.5-10.1) Total Bilirubin 0.6mg/dL (0.0-1.2) Aspartate Amino Transf (AST/SGOT) 21U/L (0-50) Alanine Aminotransferase (ALT/SGPT) 26U/L (0-32) Alkaline Phosphatase 47U/L (25-150) Total Protein 8.0g/dL (6.4-8.4) Albumin 4.6g/dL (3.4-5.0) Thyroid Stimulating Hormone (TSH) 0.702uIU/mL (0.450-4.500) Hold Platt Top Tube Received (Received) Re-Eval/Medical Decision Re-Evaluation/Progress : Time of Eval: 23:49 Patient Status: Condition improved Re-Evaluation/Progress Note: Patient is rechecked. She is informed of the plan to speak to NARROW FABRICS WEAVER in the morning. All of her questions are addressed. Patient understands and agrees with the current treatment plan. Counseled Regarding: Diagnosis, Lab results Discharge & Departure Shift Change Sign-Out Patient Care Transferred: Yes Discussed Complaint(s): Yes Laboratory Evaluation: Back, reviewed by me Input from Consult: Awaiting nursing home social worker evaluation in the morning Impression: Primary Impression: Suicidal ideation Discharge Condition All VS Reviewed: Yes Condition: Improved Referrals: Chacha Tran (PCP) Care Transferred at: 00:00 Ubaldo Attestation Portions of this note were transcribed by Renetta Valdivia. I, Dr. Sellers personally performed the history, physical exam and medical decision-making; I reviewed and confirmed the accuracy of the information in the transcribed note. Signed by: Ubaldo Boyer, 05/31/16 0000. copies to: Chacha Tran Donald L MD May 30, 2016 18:05 RENETTA VALDIVIA May 30, 2016 18:40
[2016-05-30] MEDS ORDERED: BusPIRone 15 mg Dividose Tablet PO ONE (19:00)
[2016-05-30 19:23] LABS: BASOPHILS % (AUTO) 0.3 % (0-3); EOSINOPHILS % (AUTO) 1.6 % (0-5); MONOCYTES % (AUTO) 6.6 % (4-12); Mean Corpuscular Volume 89.9 fL (81-100); NEUTROPHILS % (AUTO) 60.3 % (40-74); Platelet Count 230 bil/L (150-400)
[2016-05-30 21:18] VITALS: BP 106/68; PULSE 77; RESP 16; O2SAT 98
[2016-05-31 02:17] VITALS: BP 99/60; PULSE 64; RESP 16; O2SAT 96
[2016-05-31 11:34] VITALS: BP 90/40; PULSE 82; RESP 16; O2SAT 95
[2016-05-31] MEDS ORDERED: Alum-Mag Hydrox-Simeth 30 mL Suspension PO PRN (16:45)
[2016-05-31] MEDS ORDERED: LORazepam 1 mg Tablet PO PRN (16:45)
[2016-05-31] MEDS ORDERED: Benzocaine-Menthol Lozenge 2/Pkg PO PRN (16:45)
--- NOTE | 2016-05-31 19:01 | NUR ---
Nursing: Day shift and Admission. S: I am here because I am suicidal. O: Corazon arrived on the unit by WC at 1308 accompanied by security staff. She was tired and didn't want to sign admission papers due to tiredness. With persuasion, she cooperated with admission process. From 1330 until dinner she lay on her bed and rested. She stated she had pain, a headache, and knee pain but declined any analgesic as offered by comic writer. Rated SI 9/10, Depression 10/10, and Anxiety 9/10. Stated sleep was only 3-5 hours per night. No complaints or requests except a nicotine losenge since arrival. A: Comfortable in this unit. P: continue to assess and observe for safety.
[2016-05-31 19:25] VITALS: BP 92/52; PULSE 68; RESP 16
[2016-05-31] MEDS: BusPIRone 15 mg Dividose Tablet PO SCH (20:48)
--- NOTE | 2016-05-31 23:18 | NUR ---
Nursing Note - Straddle Truck Driver 7pm to 7am Pt visible on the unit, pleasant, calm and cooperative. Pt is well groomed, supportive or peers, reports depression is 8/10, passive and fleeting SI with no plan or intent. Pt declined Mirtazapine HS stating I cant take that, it makes me really angry and more depressed. My father took that and killed himself. Pt took Ambien for sleep and went to bed at approx. 20:30.
--- NOTE | 2016-06-01 05:09 | NUR ---
nursing, nights, 11-7 s/o- has appeared to sleep after 2330 during q 15 minute assessments. a- no apparent distress. p- monitor behavior/emotional state, quality, times and amount of sleep, use and effect of medication. lizbeth
[2016-06-01] MEDS: BusPIRone 15 mg Dividose Tablet PO SCH ×2 (09:04→20:56)
[2016-06-01 11:12] VITALS: BP 111/61; PULSE 82; RESP 16
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
--- NOTE | 2016-06-01 16:06 | NUR ---
Observations 0700 to 1900 Pt maintained behavioral control throughout the shift. Pt is depressed, guarded, isolative. Pt laid in bed all of shift thus far and refused to attend any community meetings. Pt came out for breakfast and snack but otherwise isolated. Pt ate 100% of breakfast and a snack in the afternoon but no lunch. Pt was observed every 15 minutes as ordered.
--- NOTE | 2016-06-01 16:30 | NUR ---
Nursing Note [id number] S: "My mood is at about a 4 today" . "I am doing ok". O: Patient isolating in room most of day, attended morning meeting and meals, but spent the rest of her time in her room. A: Mood depressed, flat affect, cooperative, isolative. P:Monitor for response to treatment. Q 15 min checks for safety. Follow plan of care.
--- NOTE | 2016-06-01 17:55 | NUR ---
Chemical Treatment Plant Technician./ c.m. S.:"I don't know how I feel..." O.: met with pt. in her room. She was in bed sleeping in the middle of afternoon. She agreed to talk to the typewriter assembler. She "slept ok I guess" last night. She felt "tired" and she was spending all day in bed. She denied HI, but rated SI at 9/10. She contracted for safety here. She denied AH/VH, denied paranoid/delusional thoughts. She rated depression at 9/10 also and anxiety at 10/10. She was laying calmly in bed without sign of distress or movement. Her tone of voice was calm and monotone. She didn't like her home arrangement because she didn't like her roommate. She missed a lot of appointments with her providers because she "didn't have motivation to go." She didn't get up for lunch today and didn't want to do anything. A.: pt. is isolative, cooperative, quiet. She has a flat affect and looks very calm. P.: monitor behavior, encourage pt. to spend more time in a public area and to participate in the unit activities; follow care plan.
--- NOTE | 2016-06-02 04:37 | NUR ---
Syrup Mixer Note 7pm to 7am Pt visible on unit at start of shift, watching tv with peers, reports depression 4/10 and anxiety 8/10. Denies SI, plan or intent. Affect blunted, mood anxious. Pt was vague. Reported she is concerned about housing and plans for her future. Pt given Ambien 5mg mg and Vistaril 50mg at 2100 and a repeat of Ambien 5mg at 2230 with good effect. Pt slept through the night. Monitoring ongoing for safety and location.
[2016-06-02] MEDS: BusPIRone 15 mg Dividose Tablet PO SCH ×2 (08:38→20:30)
[2016-06-02 09:30] VITALS: BP 103/58; PULSE 82; RESP 18
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
--- NOTE | 2016-06-02 11:28 | NUR ---
Nursing Note [id number] Behavior, Mood S/O: Pt out of room for meals only & morning community meeting. Pt reports she has a "headache." She rated her headache at a "5 or 6" on a scale of 1-10/10 the worst. She refused hot packs or any medication. She rated her depression, anxiety & suicidal ideation at a "9," but stated she would be able to remain safe on the unit. She also c/o chest pain with no other pain except a headache. She d/n appear to be in any distress (i.e. frowning, shaking, sweating, furrowed brow, etc.) Pt laying in bed quietly attempting to sleep. Encouraged pt to be involved in unit activities to decrease anxiety & depression. Pt declined. A: Pt states her depression & anxiety are more than they appear to be. P: Provide supportive environment. Monitor medications & effects. Encourage unit participation.
--- NOTE | 2016-06-02 16:50 | NUR ---
Phlebotomy Coordinator./ c.m. S./O.: pt. spent all time in her room sleeping or resting. She complained about a headache. Sales Exec came to pt.'s room late afternoon before dinner to check in with pt. She was in a shower. She wasn't available for a conversation. A.: pt. is isolative, quiet, passive-avoidant, has a flat affect. P.: monitor behavior, coordinate with outpatient providers, encourage pt. to spend more time in a public area; follow care plan.
--- NOTE | 2016-06-02 17:37 | NUR ---
Observations 0900 to 0 Pt affect and mood was isolative, flat and guarded. Pt eye contact and speech was ok. Pt was in her room most of the shift. Pt ate about 100% of her meals. Pt ate snack. Pt maintained behavior throughout the shift. Pt was polite and cooperative. Pt did not attend group and unit activities. Pt attended community and set daily goal for herself. Pt was minimally social with staff and peers. Pt was pleasant, polite and cooperative. Pt was observed every 15 minutes throughout the shift as ordered. Addendum: 06/02/16 at 1904 by GIOVANNI ÁLVAREZ [facility] Pt took a shower and washed a load of clothes. Pt is currently watching movie with peers.
--- NOTE | 2016-06-02 19:29 | NUR ---
Nurses Note Evening Patient has been on the unit with a blinted affect and depressed mood. She stated she wanted to return to [facility] since " I need the support". Patient contracts for safety and will be monitored q 15min for safety and support. Addendum: 06/02/16 at 1933 by LISA HERNANDEZ RN Amended: Links added. Addendum: 06/02/16 at 2132 by LISA HERNANDEZ RN PRN Patient requested and received Ambien 5mg,MOM for sleep and constipation. shift superintendent caustic cresylate to assess sleep pattern.
[2016-06-02] MEDS: Magnesium Hydroxide 10 mL Oral Concentration PO PRN (20:31)
--- NOTE | 2016-06-03 01:07 | NUR ---
Observations 1900 to 0700 Pt affect was bright. Pt spent her evening watching TV and walking the hallways with some of the other Pt's. Pt was [polite and cooperative. Pt had a hard time falling asleep last night. Pt was observed every 15 minutes through the night as directed.
--- NOTE | 2016-06-03 05:09 | NUR ---
Nursing Note gun fertilizer 11pm to 7am Pt Awake at start of shift, affect blunted, mood dysphoric/anxious. Pt reported she is having a difficult time falling asleep despite having taken ambien at 2029. Reports she suffers from anxiety which is interfering with her sleep. She states she does not take Vistaril prn during the day because the 50mg dose she is ordered does not help. " I need a higher dose for it to work". Pt complained of chest pain however when further assessed she admitted it felt more like acid reflux in the middle of her chest which she gets from time to time because of an unrepaired hiatal hernia. Pt given a repeat of Ambien 5mg with 50mg of vistaril at approx midnight, and given Maalox at 0130,with good relief and was back to sleep by 0200 without further interruption. Monitored pt with q 15 minute checks for safety, location and accountability. Addendum: 06/03/16 at 0519 by MARIO KINSEY RN Amended: Links added.
[2016-06-03] MEDS: BusPIRone 15 mg Dividose Tablet PO SCH ×2 (08:39→21:12)
[2016-06-03 10:05] VITALS: BP 101/56; PULSE 82; RESP 16
--- NOTE | 2016-06-03 11:58 | NUR ---
Nursing Note [id number] Behavior, Mood S/O: Pt ate 75% of breakfast. Out of room for meals & community meeting. Pleasant & cooperative. Pt reports depression at a "5" on a scale of 1-10/10 the worst. She reports suicidal thoughts "occasionally." She states she can be safe on the unit. B/P is slightly low at 101/56. Pt denies adverse effects of low B/P. Pt reports daily headaches "in the morning" improving during the day. Egg crate mattress given to help improve sleep/headaches. A: Depression is improved since yesterday. P: Provide supportive environment. Monitor medications & effects.
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
--- NOTE | 2016-06-03 16:05 | NUR ---
Transfer Operator./ c.m. S.:"I'm so really depressed, overwhelmed with life, a lot of anxiety." O.: met with pt. and MD together to discuss pt.'s progress. She complained about high anxiety and depression. She rated anxiety at 6-7/10 and depression at 8/10. She denied HI but she expressed SI with a plan "to use methamphetamine and heroin." He denied AH/VH or paranoid/delusional thoughts. She was staying in bed a lot. She complained about broken sleep last night. She is eating well. She didn't want to go back to her home because "it wasn't a good place for me." She wanted to go back to [facility] "for more support". Fourchette Sewer called [facility] to check if pt.'s readmission was an option. Fourchette Sewer was told that pt.'s current housing arrangement was the best that she could get at this point of time and that she won't be able to get anymore help. Fourchette Sewer also made copies of Progressive muscle relaxation, Breathing and Visualization handouts to give pt. per her agreement. A.: pt. is isolative, quiet, cooperative, has a flat affect. She is very passive and avoidant. P.: monitor behavior, encourage pt. to practice anxiety coping skills; follow care plan.
--- NOTE | 2016-06-03 17:09 | NUR ---
Observations 0900 to 2130 Pt affect and mood was lucrecia as previous days. Pt eye contact and speech was good. Pt was out of her room more today. Pt ate about 100% of her meals. Pt ate snack. Pt maintained behavior throughout the shift. Pt was polite and cooperative. Pt attended group and unit activities. Pt attended community and set daily goal for herself. Pt took a shower. Pt was more social with staff and peers today. Pt was pleasant, polite and cooperative. Pt worked on some word search puzzles and watched TV during free time. Pt was observed every 15 minutes throughout the shift as ordered.
--- NOTE | 2016-06-03 21:30 | NUR ---
[id number]. nurs. S: " It's (current outpt housing situation) not so bad ...I will have 9 months clean and sober on 7th of this month," O: Pt proud of sobriety, acknowledging that she is in much better condition that during chem.abuse period, and that although having a px with housing now, it is a small step back cfed to prev. difficulties and reporting that her current housing is probably all right. Noted that pt endorsing high levels of anxiety ,depression and SI to CM in note of this afternoon. Pt comfortable on unit, stated can reliably maintain no self harm contract on unit. Pt with direct eye contact, smiling quiet affect in interaction with staff out in watching TV in [place]. Pt had not phoned any of places on housing list and reported that she had not yet read info on breathing techs and progressive relaxation, but did verbalize knowledge of these techs when discussed, mostly working on word searches in . Pt took sheduled meds. P:JESUSP
--- NOTE | 2016-06-04 03:07 | NUR ---
Observations 1900 to 0700 Pt affect was bright. Pt spent her evening watching TV and walking the hallways with some of the other Pt's. Pt was polite and cooperative. Pt had a hard time falling asleep last night. Pt first appeared asleep at 02:30 and was observed every 15 minutes through the night as directed.
--- NOTE | 2016-06-04 04:02 | NUR ---
Nursing Note Websphere Message Broker Developer 1pm to 7am Pt OOB at start of shift, pacing the unit. affect restricted, reports mood as anxious 8/10 and depressed 6/10. Pt unable to identify triggers for anxiety stating " I get like this at night and have since I was little". Pt had received a 5mg dose of Ambien at 2245 and requested a repeat of Ambien at 0000 which was not effective. Pt asked multiple times for Nicorette lozenges which were not due. Became slightly irritable when informed they were prescribed q 4 hours. Pt requested Nicorette gum be prescribed to alternate with lozenge or an increase in lozenge frequency. Pt sat in day room talking with peer until approx 0230 when she requested Vistaril 50mg prn and went to bed. Pt slept uninterrupted until end of shift. Monitoring ongoing with q 15 minute checks for safety, location and accountability. Addendum: 06/04/16 at 0416 by MARIO KINSEY RN Amended: Links added.
[2016-06-04] MEDS: BusPIRone 15 mg Dividose Tablet PO SCH ×3 (09:25→20:26)
--- NOTE | 2016-06-04 13:57 | NUR ---
Nursing Note [id number] Mood, Behavior S/O: Pt has good appetite. Pt out of room for meals, community meeting & brief interactions with peers. She rates mood at a "5" on a scale of 1-10/10 the worst. She rated anxiety at a "8." Pt c/o not being able to sleep at night, but she spends much of the day in her room & in bed. Pleasant & cooperative with staff. Conversation tracking clear & organized with normal rate & rhythm. A: Pt is isolative & d/n participate in unit activities. P: Provide supportive environment. Monitor medications & effects.
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
[2016-06-04] MEDS: Magnesium Hydroxide 10 mL Oral Concentration PO PRN (20:25)
--- NOTE | 2016-06-04 20:47 | NUR ---
MHA Note D- Patient ate all meals in the dining room. She attended all structured groups and activities with heavy encouragement. Patient attended basic ADLs and appears moderately groomed. A- Patient spent most of the day in her room. She got out of bed for meals but would return to bed. She was encouraged to attend a journaling group at 1430. She was very reluctant, declining to go initially, but joined about 20 minutes into the group. She appeared very responsive and engaged once she was there. After the group, where she received information on coping skills and physiology of depression, patient has been out in the milieu and has periods of social engagement and smiles. Despite this, she appears predominately flat and irritable with overt despondency. Patient denies current suicidal ideation or thought disturbances and expresses forward thinking. P-Continue current treatment plan.
--- NOTE | 2016-06-04 22:51 | NUR ---
NURSING NOTE [id number] Mood: "okay" Affect: flat, a bit brighter when shes in milieu w/her peers Behavior: she has been more visible in the milieu this shift, coloring in the DR, watching TV, chatting off and on w/select peers, asking for Nicotine lozenges. Thought processes: pt. endorses anxiety but did not wish to have a Vistaril PRN as she reports "it doesnt do anything" and stated "it doesn't matter, I can't have anything anyways." She also was frustrated that she was not ordered 10 mg of Ambien this evening and still had only 5 mg. She was counseled to discuss it w/her doctor tomorrow. No SI/HI. PRNs MoM @ HS (no BM x 1 day), multiple nicotine lozenges
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
[2016-06-05 08:00] VITALS: BP 104/70; PULSE 87; RESP 16
[2016-06-05] MEDS: BusPIRone 15 mg Dividose Tablet PO SCH ×3 (08:31→20:24)
--- NOTE | 2016-06-05 13:21 | NUR ---
Nursing Note [id number] Behavior, Mood S/O: Pt in her room most of the day except for meals. Pt refused to go to groups. Pt rates her depression at a "5" on a scale of 1-10/10 the worst. She rates her anxiety at a "7 or 8." She endorses "occasional" suicidal ideation. Pt napping in room after lunch. A: Pt slowly improving, but con't to isolate in room. P: Provide supportive environment. Monitor medications & effects.
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
--- NOTE | 2016-06-05 18:42 | NUR ---
Counseling/Heavy Equipment Operator/Paver: S: "I will [facility] back to the [facility] I [facility] staying at and just live with it." O: Patient only slept 1.5 hours last night per staff. She states that she has thoughts of hurting herself by "taking meth one last time and overdosing on heroin." She denies H/I. She denies auditory an visual hallucinations. Depression is 8/10 and anxiety is 7/10. A: Patient is cooperative, guarded, flat affect, dysthymic, limited insight, limited judgment. P: Follow care plan, coordinate out-patient providers.
--- NOTE | 2016-06-05 22:58 | NUR ---
Nurses Note Evening "I can't take Ambien I have a bad reaction to it" Patient received Restoril 15mg at 2100. At 2255 c/o her tongue feeling thick and received Vistaril 50mg. Patient has been resistive to sleep medications fearing adverse reactions yet has not been able to sleep well for days. Will continue to monitor for effectiveness.
--- NOTE | 2016-06-06 05:19 | NUR ---
Sleep 11p-7a Poor response to Restoril. Pt reported her tongue still felt thick but able to breathe without difficulty, no wheezing or SOB. Pt requested and received Ambien 10mg po prn @ 2335 with good effect. Pt noted to be asleep by 0145 withe no further awakening per protocol checks. Total sleep 3.5+.
[2016-06-06] MEDS: BusPIRone 15 mg Dividose Tablet PO SCH ×3 (08:11→20:24)
[2016-06-06 10:36] VITALS: BP 96/60; PULSE 71
--- NOTE | 2016-06-06 12:43 | NUR ---
Obs Dayshift Pt spent most of the day shift in bed. Pt did get up for meals, declined to participate in group. Pt is polite, appropriate, calm, good eye contact w/ staff. Pt engages very little w/ peers and only upon approach. Pt stated that she is still having some SI. Pt stated that she doesn't mind where she is living at, but is frustrated that she and another are paying the same amount of rent to share a room, compared to others paying the same and have their own room. Pt has good ADL's and good meals - 75-100%
--- NOTE | 2016-06-06 13:20 | NUR ---
Nursing Note [id number] Behavior S/O: Pt ate 90% of breakfast. B/P slightly low at 96/60. Pt reported she is frustrated with her living situation because she has to share a room & is having to pay the same rent as the other people who do not have to share a room. Pt has come out of her room for breakfast. She has refused lunch & all other activities. Pt is polite. Conversation tracking is clear & organized. A: Pt is pleasant, but uncooperative with unit activities. P: Provide supportive environment. Monitor medications & effects. Encourage unit activities.
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
[2016-06-06] MEDS: Magnesium Hydroxide 10 mL Oral Concentration PO PRN (17:38)
--- NOTE | 2016-06-06 18:10 | NUR ---
Nurses Note Evening Patients' mood is euthymic,affect full range. Patient slept most of the day shift. She has remained on the unit since 1500. Her appetite,hygiene are undisturbed. Patient has had sleep issues requiring multiple doses of sleep medication last night and slept only 4+ hours. Her thoughts are clear,organized and reality based. Will encourage improved insight,coping skills and problem solving. Maintain q 15min. checks for safety and support. Addendum: 06/06/16 at 1837 by LISA HERNANDEZ RN Amended: Links added.
--- NOTE | 2016-06-06 18:37 | NUR ---
Counseling/Mixer Crane Operator: S: "I'm doing okay today, just a little drowsy." O: Patient only slept 4 hours last night per staff. She reports passive thoughts of hurting herself but the thoughts are not as bad today. She denies H/I. She denies auditory an visual hallucinations. Depression is 8/10 and anxiety is 6-7/10. A: Patient is cooperative, guarded, flat affect, dysthymic, limited insight, limited judgment. P: Follow care plan, coordinate out-patient providers.
[2016-06-07] MEDS: diphenhydrAMINE 25 mg Capsule PO PRN ×2 (00:27→22:38)
--- NOTE | 2016-06-07 05:14 | NUR ---
nursing, nights, 11-7 s- i'm having trouble sleeping. yea i'm kind of itchy. that would help. thank you. o- received 50 mg of benadryl at 0028. has appeared to sleep after 0115. assessed q 15 minutes. a- difficulty initiating sleep, no apparent distress. p- monitor behavior/emotional state, quality, times and amount of sleep, use and effect of medication. lizbeth
[2016-06-07] MEDS: BusPIRone 15 mg Dividose Tablet PO SCH ×3 (08:45→20:38)
--- NOTE | 2016-06-07 17:36 | NUR ---
[facility] Day Shift Pt maintained behavioral control throughout the shift. Pt affect appears mostly flat, occasionally bright. Pt spends most of the shift resting in her room, but is occasionally active on the unit throughout the shift (watching TV, lightly interacting with peers). Pt is appropriate with staff and peers when active on the unit. Pt instructed to complete preparations for upcoming DC by staff. Pt attended all meals and ate approx 100% of all meals.
[2016-06-07 17:49] VITALS: BP 100/52; PULSE 68; RESP 16
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
--- NOTE | 2016-06-07 18:21 | NUR ---
Counseling/Lacemaker: S: "I'm ready to discharge tomorrow, I think." O: Patient slept 4 hours last night per staff. She reports passive suicidal ideation no plan or intent to harm self in the hospital but a plan to use meth and overdose on heroin on discharge. She denies H/I. She denies auditory an visual hallucinations. Depression is 7/10 and anxiety is 6/10. Patient is scheduled to go back to [facility] upon discharge. She has been screened via [facility] again because patient missed too many appointments with [facility] and patient's file was closed. Patient is back in the system with [facility] and will go to an Intake appointment next week, Friday. A: Patient is cooperative, social with peers, dysthymic, limited insight, limited judgment. P: Follow care plan, coordinate out-patient providers.
--- NOTE | 2016-06-07 20:31 | NUR ---
NURSING NOTE [id number] Mood: okay Affect: quiet, flat Behavior: visible off and on in the DR, she took a shower, requested nicotine lozenges intermittently Thought processes: logical and linear, endorsed passive SI w/no plan or intent, endorsed chronic anxiety that she reports never really goes away PRNs Nicotine lozenges
[2016-06-07] MEDS: Magnesium Hydroxide 10 mL Oral Concentration PO PRN (22:39)
--- NOTE | 2016-06-08 05:43 | NUR ---
Nursing notes: overnight cashier Patient observed to be restless during the night. Patient requested additional Vistaril 50 mg po at 0015 along with Nicorette lozenge. Patient reports she is anxious and thinking about discharge tomorrow. Patient remains awake until 0345, then appeared to be sleeping on safety checks remainder of night.
--- NOTE | 2016-06-08 06:02 | NUR ---
Night Observation - Pt having a lot of trouble sleeping tonight, anxious and making frequent requests. All suggestions to try and sleep or rest were met with pt stating those things did not work. Pleasant and finally asleep at 345. Pt observed every 15 minutes as ordered.
[2016-06-08] MEDS: BusPIRone 15 mg Dividose Tablet PO SCH ×3 (08:45→20:12)
[2016-06-08 08:50] VITALS: BP 112/69; PULSE 79; RESP 16
--- NOTE | 2016-06-08 12:36 | NUR ---
Nursing Day Shift- S- "I was anxious. I couldn't sleep." (response to being asked the cause of reported poor sleep last PM.) O- Pt. appeared asleep at the start of the day shift. She woke for breakfast around 9. Pt. reported that anxiety had kept her awake. She did not make any mention of discharge, and denied being able to pinpoint the source of the anxiety. Pt. eat meals in the DR, and spent the remainder of the day in her bedroom reading. At 1230 she reported she wants to spend another night here, and might discharge tomorrow. A- Pt. reports feeling safe in the hospital, but concerned about safety after discharge. (suicide.) P- Cont. BHTP.
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
--- NOTE | 2016-06-08 13:14 | NUR ---
Coding Machine Operator./ c.m. S.:"Ok, I guess. I'm not quite sure if I'm ready for discharge today." O.: met with pt. and MD together in pt.'s room. She was in bed resting/sleeping. She complained about poor sleep last night. She admitted that she was thinking a lot about potential discharge home today and her lack of sleep was related to discharge anxiety. She couldn't tell if she had SI or not today - "I'm not sure". She denied HI, denied AH/VH or paranoid/delusional thoughts. She rated depression at 7/10 and anxiety at 5/10 at that time. Her appetite was "not too bad." She spent all morning in her room. A.: pt. is cooperative, isolative, quiet, very passive, has discharge anxiety. P.: monitor behavior, follow care plan.
--- NOTE | 2016-06-08 18:58 | NUR ---
Observations from [id number] Pt has been out on the unit socializing with peers for most of the day. Pt has had many requests for the case management rn, doctor and MHA's. She requested a specific person to help her fill out her social security and disability paperwork even though she says she has done it before. Pt is acting appropriately, but is slightly needy; has taken a shower and completed ADLS. Pt ate 100% of all meals today and has been observed every 15 minutes as directed.
--- NOTE | 2016-06-08 19:20 | NUR ---
NURSING NOTE [id number] Mood: "okay" Affect: neutral Behavior: visible in DR, socializing selectively w/peers, watching TV, worked on an SSI application under staff supervision, frequently asked for nicotine lozenges Thought processes: logical, linear, reports she feels safe on the unit Addendum: 06/08/16 at 2246 by VESTA LANG RN At 22:45 pt. reported she would like to leave tomorrow, preferably in the morning, and that she worked on her discharge safety plan this evening and feels safe and ready to leave.
--- NOTE | 2016-06-09 05:19 | NUR ---
sleep 11p-7a Delayed onset of sleep. Pt noted to be in bed and appeared asleep at 0130. She has remained asleep for the remainder of the morning with no further awakening. Total sleep up to this point is 4+ hours.
[2016-06-09] MEDS: BusPIRone 15 mg Dividose Tablet PO SCH (09:36)
--- NOTE | 2016-06-09 10:11 | PCM.DIMED ---
Discharge Instructions Date of Service Jun 09, 2016 Dates of Hospitalization May 31, 2016 at 12:51 Discharge Diagnosis Discharge Diagnosis AXIS I 1. Posttraumatic stress disorder. 2. Major depressive disorder, recurrent 3. Anorexia and bulimia, by history 4. Methamphetamine use disorder, in remission 5. Cannabis use disorder, in remission AXIS II Borderline personality disorder. AXIS III None acute. AXIS IV Severe: concerns with housing, mental health, history of substance use, financial difficulties, from children. AXIS V Current global assessment of functioning equal to 50. Test Results CBC Test 05/30/16 19:11 White Blood Count 7.0th/mm3 (3.8-10.1) Red Blood Count 4.75mil/mm3 (3.90-5.20) Hemoglobin 15.2g/dL (12.0-15.6) Hematocrit 42.7% (35.0-46.0) Mean Corpuscular Volume 89.9fL (81-100) Mean Corpuscular Hemoglobin 32.0pg (27.0-35.0) Mean Corpuscular Hemoglobin Concent 35.6% (32.0-37.0) Red Cell Distribution Width 11.8% (12.3-15.4) Platelet Count 230bil/L (150-400) Neutrophils (%) (Auto) 60.3% (40-74) Lymphocytes (%) (Auto) 31.1% (14-46) Monocytes (%) (Auto) 6.6% (4-12) Eosinophils (%) (Auto) 1.6% (0-5) Basophils (%) (Auto) 0.3% (0-3) CMP Test 05/30/16 19:11 Sodium Level 142mEq/L Potassium Level 4.8mEq/L Chloride Level 102mEq/L Carbon Dioxide Level 28mmol/L Blood Urea Nitrogen 11mg/dL Creatinine 0.72mg/dL Estimat Glomerular Filtration Rate 134mL/min Glucose Level 79mg/dL Calcium Level 9.7mg/dL Total Bilirubin 0.6mg/dL Aspartate Amino Transf (AST/SGOT) 21U/L Alanine Aminotransferase (ALT/SGPT) 26U/L Alkaline Phosphatase 47U/L Total Protein 8.0g/dL Albumin 4.6g/dL Thyroid Stimulating Hormone (TSH) 0.702uIU/mL Hold Platt Top Tube Received Diet No restrictions Activity No restrictions Patient Instructions Should you have any thoughts of harming yourself or others, please call the crisis line, your provider, 911, or go to the nearest Emergency Department. Do not change or discontinue your medications without discussing with your provider. You have been given a prescription for 30 days supply of your medication, except for 2 weeks zolpidem. Follow-up plan [facility] Intake on 06/11/16 at 9:00am [facility] [address] [place] [id number] Elliott Bailey MD Jun 09, 2016 10:11
[2016-06-09] MEDS ORDERED: BUSP15TA3 PO ×2 (10:16)
[2016-06-09] MEDS ORDERED: BUSP30TA2 PO (10:16)
[2016-06-09] MEDS ORDERED: ESCI10TA52 PO (10:16)
[2016-06-09] MEDS ORDERED: HYDR50CA3 PO (10:16)
[2016-06-09] MEDS ORDERED: ZLP5T PO (10:16)
--- NOTE | 2016-06-09 11:10 | NUR ---
Nursing Discharge- Planned discharge at noon today to home. Pt. appeared asleep from the start of shift until she was woken at 930 for community Mtg. and her morning meds. Pt. met with the MD, and requested discharge today. Pt. expressed an understanding of her medication and follow up plans. She will go by cab to [employer] belt picker her medications, then continue home. Pt. reported that she will be safe at home. She rated her anxiety as 5/10 and anxiety as 6/10. Pt. appeared to have full affect. She showered in preparation for discharge. Addendum: 06/09/16 at 1214 by NEETA FRANKS RN Pt. discharged as planned at 1205 today.
--- NOTE | 2016-06-09 13:12 | NUR ---
Computer Forwarding System Markup Clerk./ c.m. S.:"I'm tired, but ok. I'm ready for discharge. Pt. completed Safety plan. She denied SI/HI, denied AH/VH or paranoid/delusional thoughts. She rated anxiety at 5/10. She said that depression was "a little better today". She denied side effect from medications. She asked assembly instructions writer to get her a taxi to [facility] pharmacy in [facility]. She is going to get herself a taxi from the pharmacy to her home. She has intake appt. for mental health services on June 11 at 9:00 am at [facility] ([phone]). A.: pt. is cooperative, pleasant, looks calm and positive about discharge home today. P.: monitor behavior, follow care plan.
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
== END 2016-06-09 12:05 | disposition home or self-care (01) | DRG 885 ==
LOC: SED 16:36 → MHC 05-31 12:51
PROVIDERS: ADMIT Internal Medicine; ATTEND Psychiatry & Neurology Psychiatry
DX: F33.9 Major depressive disorder, recurrent, unspecified (principal); R45.851 Suicidal ideations; F43.10 Post-traumatic stress disorder, unspecified; F60.3 Borderline personality disorder; F17.200 Nicotine dependence, unspecified, uncomplicated; F15.21 Other stimulant dependence, in remission; G47.00 Insomnia, unspecified; Z91.5 Personal history of self-harm

== ENCOUNTER 2016-11-08 22:20 | Inpatient (IN) | payer MEDICARE, MEDICAID ==
[~2016-11-08] VITALS: Ht 160 cm; Wt 165.0 kg
[~2016-11-08 22:20] MED LIST changes: +BUSP30TA2 PO; -CHOL200025 PO; -MELA5TAB14 PO
[2016-11-08 22:23] VITALS: BP 121/81; PULSE 98; RESP 16; O2SAT 96
[2016-11-08 23:34] LABS: BASOPHILS % (AUTO) 0.5 % (0-3); EOSINOPHILS % (AUTO) 3.2 % (0-5); MONOCYTES % (AUTO) 8.2 % (4-12); Mean Corpuscular Hemoglobin 31.9 pg (27.0-35.0); Mean Corpuscular Volume 89.3 fL (81-100); Platelet Count 268 bil/L (150-400)
--- NOTE | 2016-11-09 00:40 | ED.REPORT ---
HPI-Psychiatric Illness Date of Service Nov 09, 2016 ED Provider: Velasquez Woodard MD Pt is a 36 year old female with a hx of meth and alcohol abuse presenting to the ED complaining of depression and suicidal ideation. She reports that she was clean for almost 2 years of alcohol and meth, but she "messed up." She has a plan to hang herself or overdose on heroin. Pt states that she last used meth 3 days ago. She denies being homeless lately. Denies any fever, chills, nausea, vomiting, SOB or wheezing. Nursing Notes Stated Complaint: SUICIDAL Chief Complaint: Psychiatric Complaint Nursing Notes Reviewed: Yes Allergies: Coded Allergies: ibuprofen (Verified Allergy, Severe, Itchy hands and face. naproxen ok, 02/07/16) lamotrigine (Verified Allergy, Severe, Rash,Itching,, 05/30/16) latex (Verified Allergy, Severe, Rash,Itching,, 05/30/16) quetiapine (Verified Allergy, Severe, Rash,Itching,SOB, 05/30/16) temazepam (Verified Allergy, Severe, Anaphylaxis, 06/07/16) trazodone (Verified Allergy, Severe, 05/30/16) Adhesives (Verified Allergy, Mild, Rash,Itching,, 05/30/16) bupropion (Verified Allergy, Unknown, SEIZURES, 05/30/16) chlorpromazine (Verified Allergy, Unknown, Seizure, 05/30/16) olanzapine (Verified Allergy, Unknown, 05/30/16) haloperidol (Verified Adverse Reaction, Mild, somnolence, 05/30/16) Uncoded Allergies: TREE NUTS (Allergy, Intermediate, 02/26/13) METALS (Allergy, Unknown, 09/18/13) Scheduled Buspirone (Buspirone) 15 Mg Tablet 15 MG PO QAM Buspirone (Buspirone) 30 Mg Tablet 30 MG PO HS Buspirone (Buspirone) 15 Mg Tablet 15 MG PO 1430 Escitalopram Oxalate (Escitalopram Oxalate) 10 Mg Tablet 30 MG PO DAILY Scheduled PRN Hydroxyzine Pamoate (HydrOXYzine Pamoate) 50 Mg Capsule 50-100 MG PO BID PRN PRN FOR ANXIETY,AGIT, OR INSOMNIA Zolpidem (Ambien) 5 Mg Tablet 10 MG PO HS PRN PRN Insomnia General Time Seen by MD: 23:13 Chief Complaint Depressed, Suicidal ideation Hx Obtained From: Patient Arrived By: Walk-in Onset Occurred: Just prior to arrival Context of Onset: Illicit drug use Symptom Duration: Since onset Progression Since Onset: Constant Severity: Current: No pain currently Severity: Maximum: No pain Recent Healthcare: Recent doctor visit, Recent hospitalization Similar Sx Previous: Yes Risk-Psychiatric Illness Suicide Risk Stratification Suicide Risk Factors - Adult: : Previous attempt: Prior psych admission: Substance abuse RF Statements: Risk factors reviewed Past Medical History Past Medical History Notes: PCP: Chacha MCMULLEN Past Medical History Multiple hospitalizations for mental health. Anorexia Bulemia Depression Anxiety Bipolar Disorder PTSD Self mutilation (cutting) Hiatal hernia Reports: Asthma, Hypertension Reports: Migraines Past Surgical History Dental Reports: Family History Unobtainable Smoking History Current Every Day Smoker Social History Alcohol Use: In recovery Drug Use: In recovery (relapsed 11/2016), IV drugs, Meth, THC, Other Other Social History: Poor social support, Homeless Ambulatory Status Independent Review of Systems Constitutional: Denies: Chills, Fever Respiratory: Denies: Shortness of breath, Wheezing GI: Denies: Nausea, Vomiting Skin: Denies Rash Psychiatric: Reports: Depression, Suicidal ideation Complete sys rev & neg: except as marked. Physical Exam Initial Vital Signs Vital Signs (First) Date Time Temp Pulse Resp B/P Pulse Ox O2 Delivery O2 Flow Rate FiO2 11/08/16 22:23 36.2 98 16 121/81 96 Room Air Initial VS: Reviewed Head / Eyes: Atraumatic, Normocephalic, PERRL ENT: Mucous membranes moist, Conjunctiva normal, No scleral icterus Neck: Supple, Non-tender, Full range of motion Respiratory: Breath sounds normal, Clear to auscultation, No respiratory distress Cardiovascular: Regular rate & rhythm, Heart sounds normal, Intact distal pulses Abdomen / GI: Soft, Non-tender, No guarding, No rebound, No distention Extremities: Vascular intact, Neuro intact, No swelling, No tenderness Skin: Warm, Dry, No cyanosis General/Constitutional: Awake, Alert, No acute distress, Well appearing Neurologic: Oriented X3, Speech NL, No motor deficits, No sensory deficits, CN II - XII intact, Reflexes equal bilat, Cerebellar NL Psychiatric: Affect NL, Mood NL, Not homicidal, No hallucinations, Cognitive function NL, Judgment/insight NL Abnormal Thinking / Perception: Positive: Suicidal, with plan Interpretation & Diagnostics Lab Results Interpretation Result Diagram: 11/08/16 2327 11/08/16 2327 Test 11/08/16 23:27 11/08/16 23:28 11/09/16 01:37 White Blood Count 7.5th/mm3 (3.8-10.1) Red Blood Count 4.58mil/mm3 (3.90-5.20) Hemoglobin 14.6g/dL (12.0-15.6) Hematocrit 40.9% (35.0-46.0) Mean Corpuscular Volume 89.3fL (81-100) Mean Corpuscular Hemoglobin 31.9pg (27.0-35.0) Mean Corpuscular Hemoglobin Concent 35.7% (32.0-37.0) Red Cell Distribution Width 12.2% (12.3-15.4) Platelet Count 268bil/L (150-400) Neutrophils (%) (Auto) 60.0% (40-74) Lymphocytes (%) (Auto) 28.0% (14-46) Monocytes (%) (Auto) 8.2% (4-12) Eosinophils (%) (Auto) 3.2% (0-5) Basophils (%) (Auto) 0.5% (0-3) Sodium Level 139mEq/L (134-144) Potassium Level 3.7mEq/L (3.5-5.2) Chloride Level 98mEq/L (97-108) Carbon Dioxide Level 26mmol/L (18-29) Blood Urea Nitrogen 19mg/dL (6-20) Creatinine 0.96mg/dL (0.57-1.00) Estimat Glomerular Filtration Rate 95mL/min (>59) Glucose Level 92mg/dL (60-99) Calcium Level 8.8mg/dL (8.5-10.1) Total Bilirubin 0.7mg/dL (0.0-1.2) Aspartate Amino Transf (AST/SGOT) 22U/L (0-50) Alanine Aminotransferase (ALT/SGPT) 22U/L (0-32) Alkaline Phosphatase 46U/L (25-150) Total Protein 7.4g/dL (6.4-8.4) Albumin 4.0g/dL (3.4-5.0) Thyroid Stimulating Hormone (TSH) 0.207uIU/mL (0.450-4.500) Hold Platt Top Tube Received (Received) Hold Urine Received (Received) Re-Eval/Medical Decision Med Decision/Clinical Course 36-year-old presents after relapsed on methamphetamine. She had a year of sobriety. Presents with suicidal ideation. Describes potentially driving off a bridge or hanging herself. Here voluntarily, and no crisis bed immediately available. Held for mental health evaluation this morning. Source of Hx: Old records Counseled Regarding: Diagnosis, Lab results Discharge & Departure Shift Change Sign-Out Patient Care Transferred: Yes Discussed Complaint(s): Yes Laboratory Evaluation: Lab evaluation discussed Impression: Primary Impression: Suicidal ideation Additional Impression: Methamphetamine abuse Discharge Condition All VS Reviewed: Yes Condition: Improved Referrals: Chacha Tran (PCP) Care Transferred to: Dr. Cabello Care Transferred at: 06:00 Ubaldo Attestation Portions of this note were transcribed by Elisabet Burrell. Dr. Vance Veloz personally performed the history, physical exam and medical decision-making; I reviewed and confirmed the accuracy of the information in the transcribed note. Signed by: Ubaldo Olson, 11/09/2016. Portions of this note were transcribed by Arpit Jennings. Dr. Vance Veloz personally performed the history, physical exam and medical decision-making; I reviewed and confirmed the accuracy of the information in the transcribed note. copies to: Chacha Tran Christopher W MD Nov 09, 2016 00:39 ELISABET BURRELL Nov 09, 2016 00:54 ARPIT JENNINGS Nov 09, 2016 05:20
[2016-11-09 06:45] VITALS: BP 104/57; PULSE 56; RESP 16; O2SAT 99
[2016-11-09 11:06] VITALS: BP 89/51; PULSE 54; RESP 16; O2SAT 97
[2016-11-09] MEDS ORDERED: Alum-Mag Hydrox-Simeth 30 mL Suspension PO PRN (17:05)
[2016-11-09] MEDS ORDERED: Magnesium Hydroxide 10 mL Oral Concentration PO PRN (17:05)
[2016-11-09] MEDS: LORazepam 0.5 mg Tablet PO PRN ×2 (17:22→20:46)
--- NOTE | 2016-11-09 18:16 | NUR ---
ADMISSION NOTE 36 y/o voluntary female admitted to unit at 15:05 from [facility] ED. Pt has had numerous prev. hospitalizations here, last being May 2016. Pt.'s stated reasons for being here were: "I relapsed last week... I'm suicidal... I want to go back on my antidepressant." Pt. had plan to either hang herself or OD on heroin, however here on unit she states she is "somewhat" suicidal w/no plan or intent at the moment. Pt. signed safety contract and agrees to let staff know if she develops plan/intent or feels unsafe. Pt. reports she has been off her medications since July 2016. She was discharged from [facility] in October after missing several appointments. Pt. has been mostly calm and cooperative, with just one moment of slight agitation when she was notified her doctor was not ordering Ambien for her tonight, stating "I knew I shouldn't have fucking come here!" When it was suggested to her that her doctor was agreeable to order Seroquel PRN for sleep she again exclaimed "that's a fucking antipsychotic! I'm not psychotic! Antipsychotics make me fucking loopy!" Pt. quickly able to collect herself and has been calm and appropriate since then. Pt. had 0.5 mg Ativan PRN and a Nicotine Patch 21 mg and Nicotine lozenge PRN at dinner time. Later reported the Ativan was not effective in helping her anxiety. Rated anxiety 9/10 and depression 8/10. Medical: pt. endorsing generalized pain 3/10 but declined offer of Tylenol PRN. Hx of 3 c-sections. Tox screen: positive for MJ, methamphetamines and amphetamines. BAL 0.
[2016-11-09] MEDS: Benzocaine-Menthol Lozenge 2/Pkg PO PRN ×2 (18:46→21:45)
[2016-11-09 21:43] LABS: APPEARANCE,URINE CLEAR (CLEAR,HAZY); COLOR,URINE YELLOW (YELLOW); OCCULT BLOOD,URINE TRACE (NEGATIVE)
[2016-11-09] MEDS: hydrOXYzine Pamoate 25 mg Capsule PO PRN (21:44)
[2016-11-10] MEDS: LORazepam 0.5 mg Tablet PO PRN ×3 (02:46→21:01)
--- NOTE | 2016-11-10 06:07 | NUR ---
Nursing Note Head Of Conservation 11pm-7am Patient was in bed at start of shift. Came to nurses station, requested and was given Nicorette lozenge at 0050. Returned to room and went to sleep. Patient awoke and requested Ativan. She was given prn Ativan 0.5 mg PO at 0246 with good effect. Patient returned to room and has appeared to sleep remainder of night. Patient slept 7+ hours. Pt monitored q 15 minutes for safety, location and accountability.
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
--- NOTE | 2016-11-10 14:21 | NUR ---
NURSE NOTE DAY Mood: Endorses significant depression and some anxiety (declined to rate). Affect: Restricted. Behavior: Pt asleep for much of shift. Up for meals. Pleasant and appropriate with staff and peers. Thought Content/Process: "If I left here today I would hang myself." Endorses SI with plan. Reports significant fatigue. Denies HI. Denies AH, VH. PRN/NURS Notes: PRN acetaminophen 650 mg for general body aches rated 5/10 around 1230.
[2016-11-10 16:35] VITALS: BP 106/73; PULSE 74; RESP 16
--- NOTE | 2016-11-10 17:19 | NUR ---
Online Affiliate Marketing Manager/Counselor S/O: Patient did not come out of her room and was asleep at all times when attempts at conversation were made. A: Patient stayed in her room all day and did not participate in any activities. Appeared to be asleep for most the day. Patient slept for 7 hours last night. P: Follow care plan and coordinate with outpatient providers.
--- NOTE | 2016-11-10 17:49 | NUR ---
[facility] Day Shift Pt remained in her room all day, appearing asleep or resting quietly. Pt declined to attend community meeting or group activities, only entering the dining room to attend meals. Pt is appropriate with staff and peers when active on the unit, but is not social. Pt attended all meals and ate approx 100% of all meals.
[2016-11-10] MEDS: BusPIRone 15 mg Dividose Tablet PO SCH (19:50)
[2016-11-10] MEDS: hydrOXYzine Pamoate 25 mg Capsule PO PRN (21:44)
--- NOTE | 2016-11-10 22:25 | NUR ---
NURSING NOTE [id number] Mood: "really anxious" Affect: calm, pleasant, bright in milieu w/peers Behavior: resting in bed at start of shift, came out for dinner and was visible in milieu thereafter. Social off and on w/peers, watching movies, making frequent requests for Nicotine and Cepacol lozenges PRN. Pt. also received Ativan 0.5 mg PRN x2 this shift. Pt. reports the Ativan dosage has been too low to be effective for her. Pt. received 50 mg Vistaril PRN @ HS. Pt. refused her scheduled Buspar, reporting that it has given her muscle stiffness in the past. Thought processes: pt. endorses passive SI w/no plan or intent, reporting she would not feel safe if she discharged. Pt. also endorses 8/10 anxiety and depression. No psychotic features noted or endorsed.
--- NOTE | 2016-11-11 04:58 | NUR ---
Nursing Note Manager Corporate 11pm to 7am Pt asleep at start of shift and remained asleep the duration of the shift with no issues reported or observed. Monitored pt with q 15 minute face checks for safety, location and accountability
[2016-11-11] MEDS: BusPIRone 15 mg Dividose Tablet PO SCH ×2 (08:30→20:30)
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
--- NOTE | 2016-11-11 12:33 | NUR ---
Nursing Dayshift: S: "If I were not in here I would hang myself or overdose on heroin." O: Patient verbally contracts for safety to alert staff if she feels dangerous while here on the unit. Pleasant on approach. Up out of her room for meals with a good appetite. States she will spend more time out of her room this afternoon. Anxiety a 6-7/10, depression an 8-9, SI per above comment, denies HI and hallucinations. A: Quiet. Calm. Compliant. P: CPOC. Monitor mood and behavior.
--- NOTE | 2016-11-11 16:22 | NUR ---
Jewelry Consultant/Counselor S:"I need to make a call at 3pm." O: Patient denies any SI or HI, no AVH, rated her anxiety and depression at an 8. A: Patient has been secluded to her room for most of the day. Was pleasant and cooperative when spoken to. P: Follow care plan and coordinate with outpatient providers.
[2016-11-11 19:05] VITALS: BP 119/70; PULSE 88; RESP 15
[2016-11-11] MEDS: hydrOXYzine Pamoate 25 mg Capsule PO PRN (20:49)
[2016-11-11] MEDS: LORazepam 0.5 mg Tablet PO PRN (20:49)
--- NOTE | 2016-11-12 02:27 | NUR ---
Observations 1900 to 0700 Pt attended and participated in wrap up group. Pt ate a snack. Pt reported a mood of 5-6. Pt spends free time in common areas interacting with peers appropriately. Pt is pleasant and cooperative. Pt maintained behavioral control and showed no signs of abnormal behavior. Pt appeared asleep at 2330 and has remained asleep. Pt respirations were observed when asleep. Staff completed 15 min close observations as ordered.
[2016-11-12] MEDS: LORazepam 0.5 mg Tablet PO PRN ×3 (03:39→21:05)
--- NOTE | 2016-11-12 05:20 | NUR ---
Nursing Noc Pt pleasant and cooperative. Appears to request PRNs just to have them such as Ativen one hour after previous PRN administration, but when told no she requests other available PRN for "the heck of it/something to do" Zero obvious anxiety or depression, appears to like to talk to ghost writer or other patients or staff whenever available. Continuing to monitor mood behavior and emotional state. Q15 minute safety checks performed as directed. CP
[2016-11-12] MEDS: BusPIRone 15 mg Dividose Tablet PO SCH ×2 (08:26→20:30)
--- NOTE | 2016-11-12 09:38 | NUR ---
Medication Pt requested to take half of her Lexapro dose stating "I am feeling fuzzy. I would like to only take 10mg instead of 20mg. I want to talk about it with the doctor this morning". Pt slept in this morning. She had both her medications and breakfast late this morning. She requested and received a Nicotine lozenge this morning upon awakening for nicotine withdrawal. Addendum: 11/12/16 at 0944 by MARJORIE GUZMAN RN She continues to refuse Buspar d/t felt S/E. Addendum: 11/12/16 at 1203 by MARJORIE GUZMAN RN Pt c/o anxiety requested and received Ativan 0.5mg po prn along with nicoretted lozenge.
[2016-11-12 10:30] VITALS: BP 114/68; PULSE 83
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
--- NOTE | 2016-11-12 17:33 | NUR ---
Yard Brakeman/Counselor S:"Well I'm here because of my bad depression." O: Patient denies any SI or HI, no auditory or visual hallucinations, and she rated her anxiety at a 6-7 and depression at an 8. A: Patient stated that her depression was always high. She has been more interactive on the unit. P:Follow care plan and coordinate with outpatient providers.
--- NOTE | 2016-11-12 18:20 | NUR ---
Nursing Dayshift: S: "Alright, dinner is here." O: Patient has eaten well today. Social with staff and select peers. Watching TV with peers this afternoon. Up and out of her room more today. Anxiety a 5-08/10. Depression a 09/09. Denies harmful thoughts and hallucinations. A: More animated. Cheerful on approach. P: CPOC. Monitor mood and behavior.
[2016-11-12] MEDS: hydrOXYzine Pamoate 25 mg Capsule PO PRN (22:08)
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
[2016-11-13] MEDS: LORazepam 0.5 mg Tablet PO PRN (00:15)
--- NOTE | 2016-11-13 04:32 | NUR ---
Nursing Noc Pt out to common area most of the evening and requesting PRNs for anxiety when available. Pleasant and cooperative. Noted conversation with MHA and will pass on in morning report. Pt has not expressed reported concerns to bond underwriter and was noted to be asleep at 0130. Pt noted to carry conversation with bond underwriter this evening smiling and laughing appropriately Continuing to monitor mood, behavior and emotional state. Q15 minute safety checks throughout the night.
[2016-11-13] MEDS: BusPIRone 15 mg Dividose Tablet PO SCH ×2 (08:30→09:42)
[2016-11-13 13:36] VITALS: BP 112/68; PULSE 70; RESP 16
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
--- NOTE | 2016-11-13 17:48 | NUR ---
[id number]. nurs. S: "I still really tired probably because of the meth.... I don't want to let myself down again... O:Pt stating that what would help her not relapse would be being around her mother and children, which she acknowledges is not possible currently. Pt states that she had been proud of maintaining clean and sober condition for over a yr and wants to try again. Pt reporting finds conditions in the house where she rents a shared rm to be difficult and want to find other housing. Pt stating she does not attend any AA or NA support grps because she is afraid of who she will encounter there. Pt states she is not connected to other druze or social support grps. A:Pt with sad affect, some slight occasional smiling, but mostly depressed ,and fairly hopeless re improving circums at present, and still recovering from relapse with excess sleeping particularly during day and up watching TV this shemar. P:CNCP
--- NOTE | 2016-11-13 18:15 | NUR ---
Breaker Up Machine Operator/Counselor: S/O: Patient slept 4+ hours last night per staff. Patient reports passive thoughts of hurting herself, but contracts for safety. She denies H/I. She also denies auditory and visual hallucinations. Depression is 8/10 and anxiety is 7/10. When asked her mood, patient stated, "Tired." A: Patient is cooperative, flat affect, dysthymic, limited judgment. P: Follow the care plan, coordinate with out-patient providers.
--- NOTE | 2016-11-13 18:32 | NUR ---
[facility] Day Shift Pt affect and behavior unchanged from previous shifts. Pt remained in her room all day, appearing asleep or resting quietly. Pt declined to attend community meeting or group activities, only entering the dining room to attend meals. Pt somewhat more active in the evening, but only briefly to watch a movie in the dining room. Pt is appropriate with staff and peers when active on the unit, but is not social. Pt attended all meals and ate approx 100% of all meals.
[2016-11-13] MEDS: hydrOXYzine Pamoate 25 mg Capsule PO PRN ×2 (20:49→22:13)
[2016-11-13] MEDS: Benzocaine-Menthol Lozenge 2/Pkg PO PRN (20:50)
[2016-11-14] MEDS: Benzocaine-Menthol Lozenge 2/Pkg PO PRN ×2 (00:48→23:05)
[2016-11-14] MEDS: hydrOXYzine Pamoate 25 mg Capsule PO PRN ×2 (02:12→21:39)
--- NOTE | 2016-11-14 04:56 | NUR ---
nursing, nights, 11-7 s- a cigarette has more nicotine then that. what the doctor did is not helping with my anxiety. i'm coming off meth. ok i'll try that but i'm not happy. o- has appeared to anxious with frequent requests. asked for nicotine luis q 2 hours. vistaril 25 mg at 2049, 2213 and 50 mg at 0212. has appeared to sleep after 0330. assessed q 15 minutes. a- anxious, frustrated, responded well to staff support, no apparent physical, distress. p- monitor behavior/emotional state, quality, times and amount of sleep, use and effect of medication. lizbeth
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
[2016-11-14 13:55] VITALS: BP 113/67; PULSE 74; RESP 16
--- NOTE | 2016-11-14 17:55 | NUR ---
[id number]. nurs. S/O: Pt reports that nothing much changed for her with her decision to stay 1 more day. Pt noted to be completely inactive and non participatory in program isolating to bedrm. Pt reporting that her depression level is 8/10, anxiety 7/10, and SI 5/10. Pt stating 3 points better than on admit. Pt stating has 1 room mate that she can socialize and walk with. Pt also stating that she may try to go to some AA/NA grps where she is less likely to encounter prev. negative associates. Pt with some smiling and some shoulder shrugging. P:CNCP
--- NOTE | 2016-11-14 18:20 | NUR ---
Wig Stylist/Counselor: S/O: Patient only slept 2.5 hours last night per staff. Patient reports passive thoughts of hurting herself, but contracts for safety. She denies H/I. She also denies auditory and visual hallucinations. Depression is 8/10 and anxiety is 8/10. When asked her mood, patient stated, "Improving." A: Patient is cooperative, flat affect, dysthymic, limited judgment. P: Follow the care plan, coordinate with out-patient providers.
--- NOTE | 2016-11-14 18:45 | NUR ---
[facility] Day Shift Pt affect and behavior mostly unchanged from previous shifts. Pt remained in her room all day, appearing asleep or resting quietly. Pt somewhat more active in the evening, but only briefly to watch a movie in the dining room. Pt is appropriate with staff and peers when active on the unit, but is not overly social. Pt attended community meeting in the AM, but did not attend group activities throughout the shift. Pt attended all meals and ate approx 100% of all meals.
[2016-11-15] MEDS: Benzocaine-Menthol Lozenge 2/Pkg PO PRN (01:08)
--- NOTE | 2016-11-15 05:47 | NUR ---
Nursing Note Spring Up Supervisor 7pm-7am Patient was out in common area at start of shift, watching tv and conversing with peers. Patient was pleasant, appropriate and cooperative. She requested and was given Vistaril 50 mg at 2139. She reported anxiety 10/ and depression 8/10 at that time. Patient had difficulty falling asleep and was noted to be in bed asleep at 0315. Patient slept 2.75 hours. Pt monitored q 15 minutes for safety, location and accountability.
[2016-11-15 10:52] VITALS: BP 107/66; PULSE 64; RESP 16
[2016-11-15] MEDS ORDERED: ESCI10TA52 PO (11:01)
[2016-11-15] MEDS ORDERED: QUET25TA73 PO (11:01)
--- NOTE | 2016-11-15 11:02 | PCM.DIMED ---
Discharge Instructions Date of Service Nov 15, 2016 Dates of Hospitalization Nov 09, 2016 at 14:32 Discharge Diagnosis Discharge Diagnosis 1Substance-induced mood disorder methamphetamine and THC 2. Posttraumatic stress disorder. 3. methamphetamine abuse, cannabis abuse. AXIS II Borderline personality disorder. AXIS III None. AXIS IV Severe homeless, substance abuse lifestyle, financial difficulties. AXIS V Current global assessment of functioning equal to 45 Medication Instructions Additional med instructions I Strongly encouraged patient to follow up with outpatient care: 1-Recommended patient takes medication as prescribed and not alter this unless under the direct care of a provider. Lexapro 10 mg daily Seroquel 25 mg at bedtime as needed for insomnia 2-Recommend client refrain from recreational drugs and alcohol while taking psychiatric medications. 3-Recommend client start a 12 step program to deal with issues of addiction. 4-Recommend patient attempt to find a therapist or group to deal with impulse control and interpersonal relationship conflicts Diet Discharge Diet: No restrictions Activity Discharge Activity: No restrictions Patient Instructions Patient Instructions Plan to follow-up with [facility] in [place] for psychiatric care clinic will have an intake appointment within the next 7 days Follow-up with PCP in: 2 weeks Galdino Hernandez MD Nov 15, 2016 11:02
--- NOTE | 2016-11-15 12:55 | NUR ---
Discharge Patient ambulated from unit accompanied by staff. Patient to take cab to her apartment. Patient alert and oriented at time of discharge. Patient reporting anxiety 8/10 and depression 6/10. Patient denies suicidal ideation, thoughts of self-harm, homicidal ideation or hallucinations. Discharge instructions/medications reviewed with patient prior to discharge. All questions addressed. Patient belongings, discharge instructions and prescription in hand. All forms signed, patient cooperative and agreeable to discharge. Prescriptions faxed to [facility]. Patient refused prescription for Quetiapine stating, that antipsychotics make her hallucinate.
--- NOTE | 2016-11-15 19:05 | NUR ---
Product Assembler/Counselor: S/O: Patient only slept 2.75 hours last night per staff. Patient denies S/I and H/I. She also denies auditory and visual hallucinations. Depression and anxiety "decreased from yesterday." Out-patient appointment: [facility], 11/19/16 at 8:30am. A: Patient is cooperative, flat affect, hopeful. P: Follow the care plan, coordinate with out-patient providers.
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
== END 2016-11-15 12:55 | disposition home or self-care (01) | DRG 897 ==
LOC: SED 22:20 → MHC 11-09 14:32
PROVIDERS: ADMIT Psychiatry & Neurology Psychiatry; ATTEND Psychiatry & Neurology Psychiatry
DX: F15.14 Other stimulant abuse with stimulant-induced mood disorder (principal); R45.851 Suicidal ideations; F17.210 Nicotine dependence, cigarettes, uncomplicated; Z62.812 Personal history of neglect in childhood; Z62.810 Personal history of physical and sexual abuse in childhood; F43.10 Post-traumatic stress disorder, unspecified; F12.10 Cannabis abuse, uncomplicated; F60.3 Borderline personality disorder; Z65.3 Problems related to other legal circumstances; Z63.4 Disappearance and death of family member